=== PATIENT | female | born 1990 | race Caucasian/White ===

== ENCOUNTER 2016-05-21 10:03 | Emergency (ER) | payer MEDICAID, OTHER ==
[~2016-05-21] VITALS: Ht 160 cm; Wt 63.0 kg
[~2016-05-21 10:03] MED LIST: IBP800T PO; NITR-65 PO; NITR100C3 PO; ONDA8TAB9 PO; PRM25T PO; TRM50T PO; [UNRECOGNIZED DRUG - REMARK]; birth control; metformin PO
[2016-05-21] MEDS ORDERED: SULF1TAB35 PO (10:34)
--- NOTE | 2016-05-21 10:34 | ED Integumentary General ---
General Chief Complaint: Skin/Wound Problems Stated Complaint: POSS SPIDER BITE ON RIGHT BREAST Nursing Triage Note: REPORTS OF AREA ON R SIDE OF BREAST THAT HAS BEEN RED WITH DARK CENTER X 1WEEK Source: patient Exam Limitations: no limitations History of Present Illness Time seen by provider: 10:27 Initial Comments This 26-year-old woman presents with a lesion on the right breast about 1-2 cm in diameter with an eschared or scabbed center. She has breast some blood and pus from the lesion. She is concerned it as a spider bite. She has no history of skin abscesses or MRSA. Allergies and Home Medications Allergies Coded Allergies: No Known Drug Allergies (Unverified , 09/22/08) Home Medications Sulfamethoxazole/Trimethoprim 1 Each Tablet #10 1 EACH PO BID Prescribed by: CHARLEE ATKINS on 05/21/16 1034 Constitutional: no symptoms reported : No Skin: see HPI Hematologic/Lymphatic: No Symptoms Reported Past Vmxgqjn-Xkeukd-Hxpikr Hx Patient Social History Alcohol Use: Denies Use Recreational Drug Use: No Smoking Status: Current Everyday Smoker Recent Foreign Travel: No Contact w/Someone Who Travel: No Recent Infectious Disease Expo: No Recent Hopitalizations: No Physical Abuse Screen: No Sexual Abuse: No Immunizations Up To Date Tetanus Booster (TDap): Less than 5yrs Surgeries HX Surgeries: No Respiratory Hx Respiratory Disorders: No Cardiovascular Hx Cardiac Disorders: No (heart cath with no intervention) Neurological Hx Neurological Disorders: No Reproductive System Hx Reproductive Disorders: Yes (pcos, miscarriage x 1) Sexually Transmitted Disease: No HIV/AIDS: No 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 Genitourinary Hx Genitourinary Disorders: Yes Genitourinary Disorders: Kidney Infection Gastrointestinal Hx Gastrointestinal Disorders: No Musculoskeletal Hx Musculoskeletal Disorders: No Endocrine Hx Endocrine Disorders: Yes (early onset dm) Endocrine Disorders: Diabetes, Non-Insulin dep HEENT HX ENT Disorders: No Cancer Hx Cancer: No Psychosocial Hx Psychiatric Problems: No Integumentary HX Skin/Integumentary Disorder: No Blood Transfusions Hx Blood Disorders: No Family Medical History Family Medial History: Cardiovascular disease 19 MOTHER Hypertension 19 MOTHER Seizure disorder G8 SISTER Physical Exam Vital Signs Vital Sign - Last 12Hours 05/21/16 05/21/16 10:19 10:38 Temp 97.8 Pulse 108 Resp 18 B/P 131/61 Pulse Ox 97 O2 Delivery Room Air Capillary Refill : Less Than 3 Seconds General Appearance: WD/WN no apparent distress HEENT: normal ENT inspection Respiratory: no respiratory distress Extremities: normal inspection 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 No fluctuance or induration. No drainage.) Progress/Results/Core Measures Results/Orders Vital Signs/I&O Vital Sign - Last 12Hours 05/21/16 05/21/16 10:19 10:38 Temp 97.8 97.8 Pulse 108 108 Resp 18 B/P 131/61 Pulse Ox 97 O2 Delivery Room Air Room Air Blood Pressure Mean: 84 Progress Note : Progress Note This breast lesion likely represents an abscess which was ruptured and expressed by the patient and is now healing. 5 days of Bactrim was prescribed. Departure Impression Impression: Primary Impression: Breast abscess Disposition: 01 HOME, SELF-CARE Condition: Stable/Unchanged Departure-Patient Inst. Decision time for Depature: 10:33 Referrals: NO,LOCAL PHYSICIAN (PCP/Family) Primary Care Physician Patient Instructions: Skin Abscess Add. Discharge Instructions: Complete your antibiotics as prescribed. Return to care if symptoms worsen. All discharge instructions reviewed with patient and/or family. Voiced understanding. Scripts Sulfamethoxazole/Trimethoprim (Bactrim Ds Tablet)1 Each Tablet1 Each PO BID #10 TAB Prov:CHARLEE VASQUEZ MD 05/21/16 CHARELE VASQUEZ MD May 21, 2016 10:34
[2016-05-21 10:38] VITALS: BP 131/61
== END 2016-05-21 10:38 | disposition home or self-care (01) ==
LOC: EDUNIT# 10:03 → ER 10:11
DX: N61.1 Abscess of the breast and nipple (principal); E11.9 Type 2 diabetes mellitus without complications; F17.210 Nicotine dependence, cigarettes, uncomplicated
CPT/HCPCS: 99281

== ENCOUNTER 2016-07-20 11:47 | Emergency (ER) | payer MEDICAID ==
[~2016-07-20] VITALS: Ht 160 cm; Wt 59.4 kg
[~2016-07-20 11:47] MED LIST changes: +SULF1TAB35 PO
[2016-07-20] MEDS ORDERED: NS IV 1000 ML 1,000 ML IV ONE (12:06)
[2016-07-20] MEDS ORDERED: ONDANSETRON 4 MG/2 ML (SDV) Z0FRAN IVP ONE (12:15)
[2016-07-20 12:16] LABS: BILIRUBIN,URINE NEGATIVE (NEGATIVE); KETONES,URINE NEGATIVE (NEGATIVE); LEUKOCYTE ESTERASE ,URINE 3+ (NEGATIVE); NITRITE,URINE NEGATIVE (NEGATIVE); PH,URINE 7 (5-9); PROTEIN,URINE 2+ (NEGATIVE); UROBILINOGEN,URINE 4 MG/DL (NORMAL)
[2016-07-20 12:16] LABS: BASOPHILS % (AUTO) 0 % (0-10); EOSINOPHILS # (AUTO) 0.1 10^3/uL (0.0-0.3); EOSINOPHILS % (AUTO) 0 % (0-10); LYMPHOCYTES # (AUTO) 0.8 X 10^3 (1.0-4.0); LYMPHOCYTES % (AUTO) 7 % (12-44); MEAN CORPUSCULAR HEMOGLOBIN 31 PG (25-34); MEAN CORPUSCULAR HGB CONC 35 G/DL (32-36); MEAN CORPUSCULAR VOLUME 87 FL (80-99); MEAN PLATELET VOLUME 10.7 FL (7.4-10.4); MONOCYTES # (AUTO) 0.5 X 10^3 (0.0-1.0); MONOCYTES % (AUTO) 4 % (0-12); NEUTROPHILS # (AUTO) 11.4 X 10^3 (1.8-7.8); NEUTROPHILS % (AUTO) 89 % (42-75); PLATELET COUNT 193 10^3/uL (130-400); RED BLOOD COUNT 4.77 10^6/uL (4.35-5.85); RED CELL DISTRIBUTION WIDTH 12.9 % (10.0-14.5); WHITE BLOOD COUNT 12.7 10^3/uL (4.3-11.0)
[2016-07-20 12:26] LABS: SQUAMOUS EPITHELIAL CELL,UR >50 /HPF; WBC,URINE 50-100 /HPF
--- NOTE | 2016-07-20 12:30 | ED GU-Female ---
General Chief Complaint: General Problems/Pain Stated Complaint: DEHYRATION, 12.5 WEEKS Nursing Triage Note: Patient advises since 0400 this morning she has vomited approx. 5 times and has experienced diarrhea x 4. Pt. advises she has been nauseated throughout her but it has not been as significant as this. Nursing Sepsis Screen: No Definite Risk Source: patient Exam Limitations: no limitations History of Present Illness Time seen by provider: 12:30 Initial Comments 26 yo female patient presents to the ED with c/o n/v/d since 0400 this AM. Patient states she is approximately 12 wks . Has her 1st OB appointment in [place] on July 25. States she has had morning sickness since finding out she was . Son has similar symptoms. Timing/Duration: this morning, constant Severity/Quality: moderate Activities at Onset: sleep Prior Genitourinary Problems: none Sexual Olinda History: less than 2 months ago, single partner Modifying Factors: Worsens With Eating Allergies and Home Medications Allergies Coded Allergies: No Known Drug Allergies (Unverified , 09/22/08) Home Medications Cephalexin 500 Mg Capsule, 500 MG PO TID for 7 Days, #21 Ref 0 Prescribed by: ZANDER HILLMAN on 07/20/16 1301 Doxylamine/Pyridoxine HCl 1 Each Tablet.dr, 2 EACH PO HS PRN for NAUSEA/VOMITING , #30 Ref 0 Prescribed by: ZANDER HILLMAN on 07/20/16 1301 Sulfamethoxazole/Trimethoprim 1 Each Tablet, 1 EACH PO BID, #10 Prescribed by: CHARLEE ATKINS on 05/21/16 1034 Constitutional: chills, No diaphoresis, No dizziness, No fever, malaise EENTM: no symptoms reported Respiratory: no symptoms reported Cardiovascular: no symptoms reported Gastrointestinal: No abdominal pain, No constipation, diarrhea, No hematemesis , loss of appetite, No melena, nausea, vomiting Genitourinary: denies burning, denies discharge, denies dysuria, denies frequency, denies flank pain, denies hematuria, denies pain : Yes Musculoskeletal: no symptoms reported Skin: no symptoms reported Psychiatric/Neurological: No Symptoms Reported All Other Systemes Reviewed Negative Unless Noted: Yes (Negative excepted noted.) Past Dftmloc-Uxzwpa-Lmdefd Hx Patient Social History Alcohol Use: Denies Use Recreational Drug Use: No Smoking Status: Current Everyday Smoker Type Used: Cigarettes Recent Foreign Travel: No Contact w/Someone Who Travel: No Recent Infectious Disease Expo: No Recent Hopitalizations: No Immunizations Up To Date Tetanus Booster (TDap): Less than 5yrs Surgeries HX Surgeries: No Respiratory Hx Respiratory Disorders: No Cardiovascular Hx Cardiac Disorders: No (heart cath with no intervention) Neurological Hx Neurological Disorders: No Reproductive System : Yes (12.5 weeks) Hx : 8 Hx Para: 1 Hx Total # of Abortions (Spona: 6 Hx Reproductive Disorders: Yes (pcos, miscarriage x 1) Sexually Transmitted Disease: No HIV/AIDS: No 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 Genitourinary Hx Genitourinary Disorders: Yes Genitourinary Disorders: Kidney Infection Gastrointestinal Hx Gastrointestinal Disorders: No Musculoskeletal Hx Musculoskeletal Disorders: No Endocrine Hx Endocrine Disorders: Yes (early onset dm) Endocrine Disorders: Diabetes, Non-Insulin dep HEENT HX ENT Disorders: No Cancer Hx Cancer: No Psychosocial Hx Psychiatric Problems: No Integumentary HX Skin/Integumentary Disorder: No Blood Transfusions Hx Blood Disorders: No Reviewed Nursing Assessment Reviewed/Agree w Nursing PMH: Yes Family Medical History Significant Family History: No Pertinent Family Hx Family Medial History: Cardiovascular disease 19 MOTHER Hypertension 19 MOTHER Seizure disorder G8 SISTER Physical Exam Vital Signs Vital Sign - Last 12Hours 07/20/16 12:13 Pulse 95 Resp 16 B/P (MAP) 109/70 Pulse Ox 98 O2 Delivery Room Air Capillary Refill : Less Than 3 Seconds General Appearance: WD/WN, no apparent distress Cardiovascular: normal peripheral pulses, regular rate, rhythm, no murmur Respiratory: lungs clear, normal breath sounds, no respiratory distress Gastrointestinal: normal bowel sounds, non tender, soft, No distended Back: normal inspection, no CVA tenderness Extremities: no pedal edema, normal capillary refill Neurologic/Psychiatric: alert, normal mood/affect, oriented x 3 Skin: normal color, warm/dry Progress/Results/Core Measures Results/Orders Lab Results Laboratory Tests Test 07/20/16 12:06 07/20/16 12:08 Range/Units White Blood Count 12.7 H 4.3-11.0 10^3/uL Red Blood Count 4.77 4.35-5.85 10^6/uL Hemoglobin 14.7 11.5-16.0 G/DL Hematocrit 42 35-52 % Mean Corpuscular Volume 87 80-99 FL Mean Corpuscular Hemoglobin 31 25-34 PG Mean Corpuscular Hemoglobin Concent 35 32-36 G/DL Red Cell Distribution Width 12.9 10.0-14.5 % Platelet Count 193 130-400 10^3/uL Mean Platelet Volume 10.7 H 7.4-10.4 FL Neutrophils (%) (Auto) 89 H 42-75 % Lymphocytes (%) (Auto) 7 L 12-44 % Monocytes (%) (Auto) 4 0-12 % Eosinophils (%) (Auto) 0 0-10 % Basophils (%) (Auto) 0 0-10 % Neutrophils # (Auto) 11.4 H 1.8-7.8 X 10^3 Lymphocytes # (Auto) 0.8 L 1.0-4.0 X 10^3 Monocytes # (Auto) 0.5 0.0-1.0 X 10^3 Eosinophils # (Auto) 0.1 0.0-0.3 10^3/uL Basophils # (Auto) 0.0 0.0-0.1 10^3/uL Neutrophils % (Manual) 90 % Lymphocytes % (Manual) 10 % Blood Morphology Comment NORMAL Sodium Level 137 135-145 MMOL/L Potassium Level 3.7 3.6-5.0 MMOL/L Chloride Level 106 98-107 MMOL/L Carbon Dioxide Level 22 21-32 MMOL/L Anion Gap 9 5-14 MMOL/L Blood Urea Nitrogen 11 7-18 MG/DL Creatinine 0.62 0.60-1.30 MG/DL Estimat Glomerular Filtration Rate > 60 BUN/Creatinine Ratio 18 Glucose Level 87 70-105 MG/DL Calcium Level 9.0 8.5-10.1 MG/DL Total Bilirubin 1.0 0.1-1.0 MG/DL Aspartate Amino Transf (AST/SGOT) 18 5-34 U/L Alanine Aminotransferase (ALT/SGPT) 19 0-55 U/L Alkaline Phosphatase 74 40-136 U/L Total Protein 6.8 6.4-8.2 G/DL Albumin 3.9 3.2-4.5 G/DL Lipase 20 8-78 U/L Urine Color YELLOW Urine Clarity SLIGHTLY CLOUDY Urine pH 7 5-9 Urine Specific [place] 1.010 L 1.016-1.022 Urine Protein 2+ H NEGATIVE Urine Glucose (UA) NEGATIVE NEGATIVE Urine Ketones NEGATIVE NEGATIVE Urine Nitrite NEGATIVE NEGATIVE Urine Bilirubin NEGATIVE NEGATIVE Urine Urobilinogen 4 H NORMAL MG/DL Urine Leukocyte Esterase 3+ H NEGATIVE Urine RBC (Auto) 2+ H NEGATIVE Urine RBC NONE /HPF Urine WBC 50-100 H /HPF Urine Squamous Epithelial Cells >50 H /HPF Urine Crystals NONE /LPF Urine Bacteria FEW H /HPF Urine Casts NONE /LPF Urine Mucus NEGATIVE /LPF Urine Culture Indicated NO My Orders Orders - ZANDER HILLMAN Cbc With Automated Diff (07/20/16 12:06) Comprehensive Metabolic Panel (07/20/16 12:06) Lipase (07/20/16 12:06) Ua Culture If Indicated (07/20/16 12:06) Saline Lock/Iv-Start (07/20/16 12:06) Heart Tones (07/20/16 12:06) Ns Iv 1000 Ml (Sodium Chloride 0.9%) (07/20/16 12:06) Ondansetron Injection (Zofran Injectio (07/20/16 12:15) Manual Differential (07/20/16 12:06) Medications Given in ED Current Medications Medications Dose Ordered Sig/Shmuel Route Start Time Stop Time Status Last Admin Dose Admin Ondansetron HCl 4 mg ONCE ONCE IVP 07/20/16 12:15 07/20/16 12:16 DC 07/20/16 12:23 4 MG Sodium Chloride 1,000 ml @ 0 mls/hr Q0M ONCE IV 07/20/16 12:06 07/20/16 12:08 DC 07/20/16 12:23 0 MLS/HR Vital Signs/I&O Vital Sign - Last 12Hours 07/20/16 12:13 Pulse 95 Resp 16 B/P (MAP) 109/70 Pulse Ox 98 O2 Delivery Room Air Blood Pressure Mean: 83 Departure Communication Progress Notes Patient reports improvement in symptoms with medication and fluids. Laboratory findings discussed with the patient. Proceed with [facility] to home. Impression Impression: Primary Impression: Nausea, vomiting, and diarrhea Additional Impression: with 12 completed weeks gestation Disposition: 01 HOME, SELF-CARE Condition: Improved Departure-Patient Inst. Decision time for Depature: 12:56 Referrals: NO,LOCAL PHYSICIAN (PCP/Family) Primary Care Physician Patient Instructions: Urinary Tract Infection, Adult (DC), Viral Gastroenteritis, Adult (DC) Add. Discharge Instructions: All discharge instructions reviewed with patient and/or family. Voiced understanding. Medications as instructed. Tylenol dnco-vyf-wzurqhj as directed for pain or fever. Clear liquid diet until symptoms improve, then increase diet slowly to a bland, low-fat diet. Drink plenty of fluids. Follow- up with your molding line operator on July 25 as previously scheduled. Return to the emergency department for worsened vomiting, diarrhea, decreased urination, black stools, inability to urinate, vomiting blood, vaginal bleeding with greater than 2 pads per hour for greater than 2 hours, vaginal discharge, fever , or any other concerns. Scripts Cephalexin (Cephalexin) 500 Mg Capsule 500 MG PO TID for 7 Days, #21 CAP 0 Refills Prov: ZANDER HILLMAN 07/20/16 Doxylamine/Pyridoxine HCl (Veronica Baird 10-10 mg Tablet) 1 Each Tablet.dr 2 EACH PO HS Y for NAUSEA/VOMITING, #30 TAB 0 Refills Prov: ZANDER HILLMAN 07/20/16 Work/School Note: Work Release Form Date Seen in the Emergency Department: Jul 20, 2016 Return to Work: Jul 21, 2016 Restrictions: No Restrictions ZANDER HILLMAN Jul 20, 2016 12:30
[2016-07-20 12:34] LABS: ALANINE AMINOTRANSFERASE 19 U/L (0-55); ALBUMIN 3.9 G/DL (3.2-4.5); ANION GAP 9 MMOL/L (5-14); ASPARTATE AMINO TRANSFERASE 18 U/L (5-34); BLOOD UREA NITROGEN 11 MG/DL (7-18); BUN/CREATININE RATIO 18; CARBON DIOXIDE 22 MMOL/L (21-32); CHLORIDE 106 MMOL/L (98-107); CREATININE SERUM 0.62 MG/DL (0.60-1.30); GFR ESTIMATED > 60; GLUCOSE 87 MG/DL (70-105); LIPASE 20 U/L (8-78); POTASSIUM 3.7 MMOL/L (3.6-5.0); SODIUM 137 MMOL/L (135-145); TOTAL PROTEIN 6.8 G/DL (6.4-8.2)
[2016-07-20 12:35] LABS: LYMPHOCYTES % (MANUAL) 10 %; NEUTROPHILS % (MANUAL) 90 %
[2016-07-20] MEDS ORDERED: DOXY1TAB3 PO (13:01)
[2016-07-20] MEDS ORDERED: CEPH500C PO (13:01)
[2016-07-20 13:38] VITALS: BP 101/54
== END 2016-07-20 13:36 | disposition home or self-care (01) ==
LOC: EDUNIT# 11:47 → ER 11:49
DX: O99.611 Diseases of the digestive system complicating pregnancy, first trimester (principal); R11.2 Nausea with vomiting, unspecified; R19.7 Diarrhea, unspecified; O99.331 Smoking (tobacco) complicating pregnancy, first trimester; F17.210 Nicotine dependence, cigarettes, uncomplicated; Z3A.12 12 weeks gestation of pregnancy
CPT/HCPCS: 36415; 80053; 81000; 83690; 85007; 85027; 96374

== ENCOUNTER 2016-11-03 11:11 | Emergency (ER) | payer MEDICAID ==
[~2016-11-03] VITALS: Ht 160 cm; Wt 64.4 kg
[~2016-11-03 11:11] MED LIST changes: +CEPH500C PO; +DOXY1TAB3 PO
[2016-11-03] MEDS ORDERED: ACETAMINOPHEN 500 MG TAB (TYLENOL) PO STA (11:32)
--- NOTE | 2016-11-03 11:41 | ED Integumentary General ---
General Chief Complaint: Bite-Animal/Human/Insect Stated Complaint: 27 WKS PREG/TICK BITE R THIGH Nursing Triage Note: c/o tick bite to right inner thigh. She pulled the tick off yesterday Source: patient Exam Limitations: no limitations History of Present Illness Time seen by provider: 11:22 Initial Comments 26-year-old female patient presents to the emergency department complains of a tick bite to the right medial thigh. Patient states she pulled the tick off yesterday morning. Reports pain and redness today. States tick was attached less than 6 hours. Timing/Duration: yesterday, getting worse Location: extremities (rt thigh) Possible Cause: other (tick bite) Modifying Factors: worse with other (worse with palpation) Allergies and Home Medications Allergies Coded Allergies: No Known Drug Allergies (Unverified , 09/22/08) Home Medications Cefdinir 300 Mg Capsule, 300 MG PO BID, #14 Ref 0 Prescribed by: ZANDER HILLMAN on 11/03/16 1145 Cephalexin 500 Mg Capsule, 500 MG PO TID for 7 Days, #21 Ref 0 Prescribed by: ZANDER HILLMAN on 07/20/16 1301 Doxylamine/Pyridoxine HCl 1 Each Tablet.dr, 2 EACH PO HS PRN for NAUSEA/VOMITING , #30 Ref 0 Prescribed by: ZANDER HILLMAN on 07/20/16 1301 Mupirocin Calcium 15 Gm Cream..g., 15 GM TP UD, #1 Ref 0 apply to the rt thigh BID x7d Prescribed by: ZANDER HILLMAN on 11/03/16 1145 Sulfamethoxazole/Trimethoprim 1 Each Tablet, 1 EACH PO BID, #10 Prescribed by: CHARLEE ATKINS on 05/21/16 1034 Constitutional: No chills, No diaphoresis, No dizziness, No fever, No malaise, No weakness Respiratory: No cough, No short of breath Cardiovascular: no symptoms reported Gastrointestinal: No abdominal pain, No jaundice, No nausea, No vomiting Genitourinary: No decreased output, No discharge, No dysuria, No frequency, No hematuria, No pain : Yes Musculoskeletal: no symptoms reported Skin: see HPI Psychiatric/Neurological: No Symptoms Reported All Other Systems Reviewed Negative Unless Noted: Yes (Negative excepted noted.) Past Cqnxskr-Mhvqka-Iiuxjc Hx Patient Social History Alcohol Use: Denies Use Recreational Drug Use: No Type Used: Cigarettes Recent Foreign Travel: No Contact w/Someone Who Travel: No Recent Infectious Disease Expo: No Recent Hopitalizations: No Immunizations Up To Date Tetanus Booster (TDap): Less than 5yrs Surgeries HX Surgeries: No Respiratory Hx Respiratory Disorders: No Cardiovascular Hx Cardiac Disorders: No (heart cath with no intervention) Neurological Hx Neurological Disorders: No Reproductive System Hx Reproductive Disorders: Yes (pcos, miscarriage x 1) Sexually Transmitted Disease: No HIV/AIDS: No 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 Genitourinary Hx Genitourinary Disorders: Yes Genitourinary Disorders: Kidney Infection Gastrointestinal Hx Gastrointestinal Disorders: No Musculoskeletal Hx Musculoskeletal Disorders: No Endocrine Hx Endocrine Disorders: Yes (early onset dm) Endocrine Disorders: Diabetes, Non-Insulin dep HEENT HX ENT Disorders: No Cancer Hx Cancer: No Psychosocial Hx Psychiatric Problems: No Integumentary HX Skin/Integumentary Disorder: No Blood Transfusions Hx Blood Disorders: No Reviewed Nursing Assessment Reviewed/Agree w Nursing PMH: Yes Family Medical History Significant Family History: No Pertinent Family Hx Family Medial History: Cardiovascular disease 19 MOTHER Hypertension 19 MOTHER Seizure disorder G8 SISTER Physical Exam Vital Signs Vital Sign - Last 12Hours 11/03/16 11:21 Temp 97.6 Pulse 80 Resp 16 B/P (MAP) 121/69 Pulse Ox 98 O2 Delivery Room Air Capillary Refill : Less Than 3 Seconds General Appearance: WD/WN, no apparent distress Cardiovascular: normal peripheral pulses, regular rate, rhythm, no edema, no murmur Respiratory: lungs clear, normal breath sounds, no respiratory distress Gastrointestinal: non tender, soft Back: normal inspection Extremities: no pedal edema, normal capillary refill, other (1x1 cm area of light pink blush noted on the rt medial thigh with a central puncture site noted. soft tissue in no drainage.) Neurologic/Psychiatric: alert, normal mood/affect, oriented x 3 Skin: normal color, warm/dry, other (1x1 cm area of light pink blush noted on the rt medial thigh with a central puncture site noted. soft tissue in no drainage.) Skin Problem Location: lower extremities (rt medial thigh) Skin Problem Character: erythema, tenderness, other (1x1 cm area of light pink blush noted on the rt medial thigh with a central puncture site noted. soft tissue in no drainage.) Progress/Results/Core Measures Results/Orders My Orders Orders - ZANDER HILLMAN Heart Tones (11/03/16 11:32) Acetaminophen Tablet (Tylenol Tablet) (11/03/16 11:32) Vital Signs/I&O Vital Sign - Last 12Hours 11/03/16 11/03/16 11/03/16 11:21 11:52 12:17 Temp 97.6 97.6 97.6 Pulse 80 78 Resp 16 16 B/P (MAP) 121/69 Pulse Ox 98 98 O2 Delivery Room Air Blood Pressure Mean: 86 Departure Communication Progress Notes Patient seen and evaluated. FHT's 140 bpm. Plan for discharge to home with prescriptions for Omnicef and Bactroban. Tick attached less than 72 hours; therefore, tick borne illness is less likely. Patient follow-up with her x ray developer as an outpatient. Impression Impression: Primary Impression: Cellulitis Qualified Codes: L03.115 - Cellulitis of right lower limb Additional Impression: Tick bite of thigh Qualified Codes: S70.361A - Insect bite (nonvenomous), right thigh, initial encounter; W57.XXXA - Bitten or stung by nonvenomous insect and other nonvenomous arthropods, initial encounter Disposition: 01 HOME, SELF-CARE Condition: Improved Departure-Patient Inst. Decision time for Depature: 11:43 Referrals: NO,LOCAL PHYSICIAN (PCP) Primary Care Physician GARRET PENA MD (Family) Primary Care Physician Patient Instructions: Insect Bites and Stings (DC) Add. Discharge Instructions: All discharge instructions reviewed with patient and/or family. Voiced understanding. Medications as instructed. Tylenol Extra Strength over-the- counter as directed for pain. Ice packs or heating pads as needed. Shower with antibacterial soap. Follow-up with your x ray developer for recheck. Return to the emergency department for worsened pain, redness, fever, drainage, vaginal bleeding, vaginal discharge, abdominal pain, or any other concerns. Scripts Mupirocin Calcium (Bactroban) 15 Gm Cream..g. 15 GM TP UD, #1 TUBE 0 Refills apply to the rt thigh BID x7d Prov: ZANDER HILLMAN 11/03/16 Cefdinir (Cefdinir) 300 Mg Capsule 300 MG PO BID, #14 CAP 0 Refills Prov: ZANDER HILLMAN 11/03/16 Images Extremities-Lower 1 - Cellulitis, Other-See Progress Note ZANDER HILLMAN Nov 03, 2016 11:41
[2016-11-03] MEDS ORDERED: MUPI15CR TP (11:45)
[2016-11-03] MEDS ORDERED: CEFD300C3 PO (11:45)
[2016-11-03 12:17] VITALS: BP 120/62
--- OUTSIDE RECORDS SUMMARY | 2016-11-05 11:22 | XMS REPORT | Continuity of Care Document ---
Author Author [facility] Organization [facility] Address Unknown Phone Unavailable Allergies Active Description Code Type Severity Reaction Onset Reported/Identified Relationship to Patient Clinical Status Yes No Known Drug Allergies [id number] Drug Allergy Mild N/A 09/22/2008 Medications Problems Date Dx Coded Attending Type Code Diagnosis Diagnosed By 12/03/2013 ALTAF HUMPHREYS APRN Ot 787.01 NAUSEA WITH VOMITING 05/21/2016 JOSELIN BORRERO MD Ot 786.05 SHORTNESS OF BREATH 05/21/2016 JOSELIN BORRERO MD Ot 786.2 COUGH 05/21/2016 JOSELIN BORRERO MD Ot 786.50 CHEST PAIN NOS 05/21/2016 CHARLEE VASQUEZ MD Ot E11.9 TYPE 2 DIABETES MELLITUS WITHOUT COMPLIC 05/21/2016 CHARLEE VASQUEZ MD Ot F17.210 NICOTINE DEPENDENCE, CIGARETTES, UNCOMPL 05/21/2016 CHARLEE VASQUEZ MD Ot N61.1 ABSCESS OF THE BREAST AND NIPPLE 05/21/2016 JOSELIN BORRERO MD Ot 786.05 SHORTNESS OF BREATH 05/21/2016 JOSELIN BORRERO MD Ot 786.2 COUGH 05/21/2016 JOSELIN BORRERO MD Ot 786.50 CHEST PAIN NOS 05/22/2016 CHARLEE VASQUEZ MD Ot E11.9 TYPE 2 DIABETES MELLITUS WITHOUT COMPLIC 05/22/2016 CHARLEE VASQUEZ MD Ot F17.210 NICOTINE DEPENDENCE, CIGARETTES, UNCOMPL 05/22/2016 CHARLEE VASQUEZ MD Ot N61.1 ABSCESS OF THE BREAST AND NIPPLE 05/23/2016 CHARLEE VASQUEZ MD Ot E11.9 TYPE 2 DIABETES MELLITUS WITHOUT COMPLIC 05/23/2016 CHARLEE VASQUEZ MD Ot F17.210 NICOTINE DEPENDENCE, CIGARETTES, UNCOMPL 05/23/2016 CHARLEE VASQUEZ MD Ot N61.1 ABSCESS OF THE BREAST AND NIPPLE 07/20/2016 ADAIR HENRIQUEZ, JOSELIN Mason Ot 786.05 SHORTNESS OF BREATH 07/20/2016 ADAIR HENRIQUEZ, JOSELIN Mason Ot 786.2 COUGH 07/20/2016 JOSELIN BORRERO MD Ot 786.50 CHEST PAIN NOS 07/20/2016 ZANDER MARTINS Ot F17.210 NICOTINE DEPENDENCE, CIGARETTES, UNCOMPL 07/20/2016 ZANDER MARTINS L Ot O99.331 SMOKING (TOBACCO) COMPLICATING 07/20/2016 ZANDER MARTINS Ot O99.611 DISEASES OF THE DGSTV SYS COMP 07/20/2016 ZANDER MARTINS Ot R11.2 NAUSEA WITH VOMITING, UNSPECIFIED 07/20/2016 ZANDER MARTINS Ot R19.7 DIARRHEA, UNSPECIFIED 07/20/2016 ZANDER MARTINS Ot Z3A.12 12 WEEKS GESTATION OF 07/22/2016 ZANDER MARTINS Ot F17.210 NICOTINE DEPENDENCE, CIGARETTES, UNCOMPL 07/22/2016 ZANDER MARTINS Ot O99.331 SMOKING (TOBACCO) COMPLICATING 07/22/2016 ZANDER MARTINS Ot O99.611 DISEASES OF THE DGSTV SYS COMP 07/22/2016 ZANDER MARTINS Ot R11.2 NAUSEA WITH VOMITING, UNSPECIFIED 07/22/2016 ZANDER MARTINS Ot R19.7 DIARRHEA, UNSPECIFIED 07/22/2016 ZANDER MARTINS Ot Z3A.12 12 WEEKS GESTATION OF 07/22/2016 ZANDER MARTINS Ot F17.210 NICOTINE DEPENDENCE, CIGARETTES, UNCOMPL 07/22/2016 ZANDER MARTINS Ot O99.331 SMOKING (TOBACCO) COMPLICATING 07/22/2016 ZANDER MARTINS Ot O99.611 DISEASES OF THE DGSTV SYS COMP 07/22/2016 ZANDER MARTINS Ot R11.2 NAUSEA WITH VOMITING, UNSPECIFIED 07/22/2016 ZANDER MARTINS Ot R19.7 DIARRHEA, UNSPECIFIED 07/22/2016 ZANDER MARTINS Ot Z3A.12 12 WEEKS GESTATION OF Procedures Results Test Result Range Complete blood count (CBC) with automated white blood cell (WBC) differential - 07/20/16 12:06 Blood leukocytes automated count (number/volume) 12.7 10*3/ uL 4.3-11.0 Blood erythrocytes automated count (number/volume) 4.77 10*6 /uL 4.35-5.85 Venous blood hemoglobin measurement (mass/volume) 14.7 g/dL 11.5-16.0 Blood hematocrit (volume fraction) 42 % 35-52 Automated erythrocyte mean corpuscular volume 87 [foz_us] 80-99 Automated erythrocyte mean corpuscular hemoglobin (mass per erythrocyte) 31 pg 25-34 Automated erythrocyte mean corpuscular hemoglobin concentration measurement ( mass/volume) 35 g/dL 32-36 Automated erythrocyte distribution width ratio 12.9 % 10.0-14.5 Automated blood platelet count (count/volume) 193 10*3/uL 130-400 Automated blood platelet mean volume measurement 10.7 [foz_ us] 7.4-10.4 Automated blood neutrophils/100 leukocytes 89 % 42-75 Automated blood lymphocytes/100 leukocytes 7 % 12-44 Blood monocytes/100 leukocytes 4 % 0-12 Automated blood eosinophils/100 leukocytes 0 % 0-10 Automated blood basophils/100 leukocytes 0 % 0-10 Blood neutrophils automated count (number/volume) 11.4 10*3 1.8-7.8 Blood lymphocytes automated count (number/volume) 0.8 10*3 1.0-4.0 Blood monocytes automated count (number/volume) 0.5 10*3 0.0-1.0 Automated eosinophil count 0.1 10*3/uL 0.0-0.3 Automated blood basophil count (count/volume) 0.0 10*3/uL 0.0-0.1 Comprehensive metabolic panel - 07/20/16 12:06 Serum or plasma sodium measurement (moles/volume) 137 mmol/ L 135-145 Serum or plasma potassium measurement (moles/volume) 3.7 mmol/L 3.6-5.0 Serum or plasma chloride measurement (moles/volume) 106 mmol /L 98-107 Carbon dioxide 22 mmol/L 21-32 Serum or plasma anion gap determination (moles/volume) 9 mmol/L 5-14 Serum or plasma urea nitrogen measurement (mass/volume) 11 mg/dL 7-18 Serum or plasma creatinine measurement (mass/volume) 0.62 mg /dL 0.60-1.30 Serum or plasma urea nitrogen/creatinine mass ratio 18 NRG Serum or plasma creatinine measurement with calculation of estimated glomerular filtration rate > NRG Serum or plasma glucose measurement (mass/volume) 87 mg/dL 70-105 Serum or plasma calcium measurement (mass/volume) 9.0 mg/dL 8.5-10.1 Serum or plasma total bilirubin measurement (mass/volume) 1.0 mg/dL 0.1-1.0 Serum or plasma alkaline phosphatase measurement (enzymatic activity/volume) 74 U/L 40-136 Serum or plasma aspartate aminotransferase measurement (enzymatic activity/ volume) 18 U/L 5-34 Serum or plasma alanine aminotransferase measurement (enzymatic activity/volume ) 19 U/L 0-55 Serum or plasma protein measurement (mass/volume) 6.8 g/dL 6.4-8.2 Serum or plasma albumin measurement (mass/volume) 3.9 g/dL 3.2-4.5 Lipase - 07/20/16 12:06 Lipase 20 U/L 8-78 Blood manual differential performed detection - 07/20/16 12:06 Manual blood segmented neutrophils/100 leukocytes 90 % NRG Manual blood lymphocytes/100 leukocytes 10 % NRG Blood erythrocyte morphology finding identification NORMAL NRG Complete urinalysis with reflex to culture - 07/20/16 12:08 Urine color determination YELLOW NRG Urine clarity determination SLIGHTLY CLOUDY NRG Urine pH measurement by test strip 7 5- 9 Specific gravity of urine by test strip 1.010 1.016-1.022 Urine protein assay by test strip, semi-quantitative 2+ NEGATIVE Urine glucose detection by automated test strip NEGATIVE NEGATIVE Erythrocytes detection in urine sediment by light microscopy 2+ NEGATIVE Urine ketones detection by automated test strip NEGATIVE NEGATIVE Urine nitrite detection by test strip NEGATIVE NEGATIVE Urine total bilirubin detection by test strip NEGATIVE NEGATIVE Urine urobilinogen measurement by automated test strip (mass/volume) 4 mg/dL NORMAL Urine leukocyte esterase detection by dipstick 3+ NEGATIVE Automated urine sediment erythrocyte count by microscopy (number/high power field) NONE NRG Automated urine sediment leukocyte count by microscopy (number/high power field ) [HPF] NRG Bacteria detection in urine sediment by light microscopy FEW NRG Squamous epithelial cells detection in urine sediment by light microscopy >50 NRG Crystals detection in urine sediment by light microscopy NONE NRG Casts detection in urine sediment by light microscopy NONE NRG Mucus detection in urine sediment by light microscopy NEGATIVE NRG Complete urinalysis with reflex to culture NO NRG Encounters ACCT No. Visit Date/Time Discharge Status Pt. Type Provider Facility Loc./Unit Complaint [id number] 07/20/2016 11:49:00 2016 13:36:00 DIS Emergency ZANDER MARTINS [facility] ER DEHYRATION, 12.5 WEEKS [id number] 05/21/2016 10:11:00 2016 10:38:00 DIS Emergency CHARLEE VASQUEZ MD [facility] ER POSS SPIDER BITE ON RIGHT BREAST [id number] 12/03/2013 10:15:00 2013 13:16:00 DIS Emergency ALTAF HUMPHREYS APRN [facility] ER VOMITING/DIARRHEA [id number] 07/23/2013 10:38:00 2013 23:59:59 CLS Outpatient JOSELIN BORRERO MD [facility] CARD CP [id number] 07/22/2013 10:48:00 2013 23:59:59 CLS Outpatient JOSELIN BORRERO MD [facility] RAD 3 WK COUGH,SOB
== END 2016-11-03 12:17 | disposition home or self-care (01) ==
LOC: EDUNIT# 11:11 → ER 11:13
DX: O9A.22 Injury, poisoning and certain other consequences of external causes complicating childbirth (principal); S70.361A Insect bite (nonvenomous), right thigh, initial encounter; O99.719 Diseases of the skin and subcutaneous tissue complicating pregnancy, unspecified trimester; L03.115 Cellulitis of right lower limb; O24.919 Unspecified diabetes mellitus in pregnancy, unspecified trimester; Z3A.00 Weeks of gestation of pregnancy not specified; Z87.891 Personal history of nicotine dependence; W57.XXXA Bitten or stung by nonvenomous insect and other nonvenomous arthropods, initial encounter
CPT/HCPCS: 99283

== ENCOUNTER 2016-12-10 20:45 | Outpatient (CLI) | payer MEDICAID ==
[~2016-12-10] VITALS: Ht 160 cm; Wt 67.1 kg
[~2016-12-10 20:45] MED LIST changes: +CEFD300C3 PO; +MUPI15CR TP
[2016-12-10 21:07] VITALS: BP 114/60
[2016-12-10] MEDS ORDERED: PREN-142 PO (21:41)
--- NOTE | 2016-12-11 08:13 | Physician Query-Final Dx ---
ARELY MODI 12/11/16 0813: Clinic Account Progress/Dx Physician Query: Please give diagnosis Date of Service Dec 10, 2016 at 20:45 FERCHO COLLINS DO 12/12/16 0648: Clinic Account Progress/Dx DIAGNOSIS: Diagnosis decreased movement, third trimester, no local physician threatened labor ARELY MODI Dec 11, 2016 08:13 FERCHO COLLINS DO Dec 12, 2016 06:48
== END 2016-12-10 22:15 | disposition home or self-care (01) ==
LOC: LDRP 20:45 → WSo 20:45
PROVIDERS: ATTEND Obstetrics & Gynecology
DX: O36.8130 Decreased fetal movements, third trimester, not applicable or unspecified (principal); O47.03 False labor before 37 completed weeks of gestation, third trimester; Z3A.33 33 weeks gestation of pregnancy
CPT/HCPCS: 99213

== ENCOUNTER → 2018-03-17 | Outpatient (CLI) | payer MEDICAID ==
[~2018-03-17] MED LIST changes: +PREN-142 PO
--- NOTE | 2018-03-17 16:21 | Diagnostic Imaging Report ---
INDICATION: survey. TECHNIQUE: Multiple real-time grayscale images were obtained over the gravid uterus. COMPARISON: There are no prior studies available for comparison. FINDINGS: There is a single live fetus in transverse presentation. heart motion was noted, and a rate of 139 BPM was recorded. However, the four-chamber heart view is less than optimal. A short-term (4-6 week) followup exam would be recommended for further evaluation. There is no abnormality identified otherwise. The growth parameters are fairly uniform. The placenta is posterior, and there is no previa. The amniotic fluid volume is within normal limits. The cervix measures 3.7 cm in length. IMPRESSION: 1. There is a single live fetus of approximately 20 weeks 3 days gestation, +/-1.5 weeks. The EDC is August 01, 2018. 2. There are no abnormalities identified. However, the four-chamber heart view is less than optimal. Recommendations as above. 3. The growth parameters are fairly uniform. Biometrical measurements are as follows: Biparietal 4.72 cm, age 20 weeks 2 days. Head circumference 17.31 cm, age 20 weeks 0 days. Abdominal circumference 15.47 cm, age 20 weeks 5 days. Femur length 3.31 cm, age 20 weeks 3 days. Sonographic estimated age: 20 weeks 3 days. Sonographic estimated date of delivery: 08/01/2018. Estimated Weight: 354 gm (+/- 52 gm). LMP percentile: 63%. heart rate: 139 beats per minute. number: 1 of 1. Dictated by: Dictated on workstation # [id number]
== END ==
LOC: RAD 14:00
PROVIDERS: ATTEND Obstetrics & Gynecology
DX: Z36.89 Encounter for other specified antenatal screening (principal); Z3A.20 20 weeks gestation of pregnancy
CPT/HCPCS: 76805

== ENCOUNTER 2018-04-15 20:22 | Outpatient (CLI) | payer MEDICAID ==
[~2018-04-15] VITALS: Ht 160 cm; Wt 61.2 kg
[2018-04-15 20:40] VITALS: BP 114/60
[2018-04-15 21:21] LABS: BILIRUBIN,URINE NEGATIVE (NEGATIVE); CLARITY,URINE CLEAR; COLOR,URINE YELLOW; GLUCOSE, URINE (UA) NEGATIVE (NEGATIVE); KETONES,URINE NEGATIVE (NEGATIVE); LEUKOCYTE ESTERASE ,URINE NEGATIVE (NEGATIVE); NITRITE,URINE NEGATIVE (NEGATIVE); PH,URINE 7 (5-9); PROTEIN,URINE NEGATIVE (NEGATIVE); UROBILINOGEN,URINE 1 MG/DL (NORMAL)
[2018-04-15 21:28] LABS: RBC,URINE 0-2 /HPF; SQUAMOUS EPITHELIAL CELL,UR RARE /HPF
== END 2018-04-15 22:20 | disposition home or self-care (01) ==
LOC: LDRP 20:22 → WSo 20:22
PROVIDERS: ATTEND Obstetrics & Gynecology
DX: O99.89 Other specified diseases and conditions complicating pregnancy, childbirth and the puerperium (principal); R10.2 Pelvic and perineal pain; Z3A.24 24 weeks gestation of pregnancy
CPT/HCPCS: 81000; 99214

== ENCOUNTER 2018-04-17 11:30 | Outpatient (CLI) | payer MEDICAID ==
[~2018-04-17] VITALS: Ht 160 cm; Wt 61.3 kg
[2018-04-17 12:00] VITALS: BP 113/56
[2018-04-17 12:51] VITALS: BP 119/58
[2018-04-17 13:00] VITALS: BP 106/59
[2018-04-17 13:07] LABS: BILIRUBIN,URINE NEGATIVE (NEGATIVE); CLARITY,URINE CLEAR; COLOR,URINE YELLOW; GLUCOSE, URINE (UA) NEGATIVE (NEGATIVE); KETONES,URINE NEGATIVE (NEGATIVE); LEUKOCYTE ESTERASE ,URINE 1+ (NEGATIVE); NITRITE,URINE NEGATIVE (NEGATIVE); PH,URINE 7 (5-9); PROTEIN,URINE NEGATIVE (NEGATIVE); UROBILINOGEN,URINE 1 MG/DL (NORMAL)
[2018-04-17 13:15] VITALS: BP 107/57
[2018-04-17 13:16] LABS: BACTERIA,URINE TRACE /HPF
[2018-04-17 13:57] VITALS: BP 106/55
[2018-04-17 14:16] VITALS: BP 107/56
[2018-04-17] MEDS ORDERED: METR500T PO (14:46)
[2018-04-17] MEDS ORDERED: FLU QUADRIvalent (5+ YOA) 2018-2019 (AFLURIA) 0.5 ML IM ONE (16:15)
== END 2018-04-17 15:00 | disposition home or self-care (01) ==
LOC: LDRP 11:30 → WSo 11:30 → LDRP 14:06 → WS 14:06 → WSo 15:00
PROVIDERS: ATTEND Obstetrics & Gynecology
DX: O99.89 Other specified diseases and conditions complicating pregnancy, childbirth and the puerperium (principal); R10.2 Pelvic and perineal pain; Z3A.24 24 weeks gestation of pregnancy
CPT/HCPCS: 81000; 87088; 87210; 99214

== ENCOUNTER 2018-06-05 21:38 | Outpatient (CLI) | payer SELFPAY ==
--- NOTE | 2018-06-04 22:40 | NUR ---
AMPICILLIN 20GM IV STARTED PER ORDERS.
[~2018-06-05] VITALS: Ht 160 cm; Wt 65.9 kg
[~2018-06-05 21:38] MED LIST changes: +METR500T PO
--- NOTE | 2018-06-05 21:45 | NUR ---
ASHLEY DAVALOS presented to unit via from ED, with c/o SROM. ASHLEY DAVALOS weighed, gowned, voided, and to bed. EFHM and TOCO applied, VS taken. ASHLEY DAVALOS oriented to bed controls, call light, TV, heat, and A/C controls.
[2018-06-05 21:55] VITALS: BP 118/64
[2018-06-05] MEDS ORDERED: D5 LR IV SOLUTION 1,000 ML IV SCH ×2 (21:55)
[2018-06-05] MEDS ORDERED: AMPICILLIN FOR IV USE 2,000 MG in NS (IVPB) 50 ML IV SCH (21:55)
[2018-06-05] MEDS ORDERED: D5 LR IV SOLUTION 1,000 ML IV ONE (21:56)
[2018-06-05] MEDS ORDERED: CATHETER FLUSH 10 ML SYR IV SCH (22:00)
[2018-06-05] MEDS ORDERED: BETAMETHASONE ACE/NA PHOS 6 MG/ML (CELESTONE SOLUSPAN) IM ONE (22:00)
[2018-06-05] MEDS ORDERED: BETAMETHASONE ACE/NA PHOS 6 MG/ML (CELESTONE SOLUSPAN) ONE ×2 (22:00→22:10)
--- NOTE | 2018-06-05 22:05 | History & Physical-OB/GYN ---
History of Present Illness History of Present Illness Reason for visit/HPI this is a 28-year-old gravida4 para 3002 at 31-4/7 weeks who called women's services to report that felt a large gush of fluid at home while she was seated on the couch and has had trickling since that time. has been complicated by evaluation at 24 weeks of gestation. When she was seen in labor and delivery with complaint of pelvic pressure. She was not noted to be mickie but her cervix was 3 cm dilated and thick. She was sent home by the on-call physician but no instructions were given. She returned on 04/17 with complaints of increase in mucousy discharge. She had few clue cells that were noted on wet mount so she was started on metronidazole. After that time she had a follow-up ultrasound that had previously been ordered for heart not seen on her 20 week survey. This was May 01, 2018. I received a report that the cervix was 4+ centimeters in length but appeared closed externally, but there is "funneling" with an area below the funneling of 2 cm. I saw her in the office on 05/06/18. She at that time was not complaining of discharge but did state she was having pressure. Cervical exam was 4 cm and - 3. Nonstress test was done and there were no contractions. She was 26 weeks at this time. She received a round of betamethasone. Does not have a history of labor. But because the cervix was 4 cm dilated at 26 weeks we recommended repeat evaluation and repeat betamethasone. I started her on progesterone and Procardia due to the advanced cervical dilation. She has done well since that time. She has a history of previous . She is scheduled for at 39 weeks. She is a 4 para 3003. With a vaginal delivery in 2008 with a . This was after an accident. She then had a live at 38 weeks of a vaginal delivery in 2015. And then a (due to breech in labor) at 38 weeks in 2017. She [facility] Date of Admission 06/05/18 Date Seen by a Provider: Jun 05, 2018 Time Seen by a Provider: 21:55 I consulted on this patient on 06/05/18 21:57 Attending Physician Daksha Collins DO Admitting Physician Daksha Collins DO Consult see above HIV - Rub I RPR NR HBSAg - Hep C - A+/Antibody - 1 hour 115 Hgb 13.5 GC/Cl - GBS unknown Allergies and Home Medications Allergies Coded Allergies: No Known Drug Allergies (Unverified , 09/22/08) Home Medications Nifedipine 30 Mg Tab.er.24, 30 MG PO DAILY Prescribed by: DAKSHA COLLINS on 06/05/182206 Vit No.124/Iron/FA 1 Each Tablet, 1 EACH PO DAILY, (Reported) Progesterone 200 Mg Cap, 200 MG PO DAILY Prescribed by: DAKSHA COLLINS on 06/05/182206 Patient Home Medication List Home Medication List Reviewed: Yes Past Hczmcou-Cvnxkk-Gfmdwe Hx Patient Social History Marrital Status: domestic partnership Number of Children: 2 Number of living children: 2 Employed/Student: unemployed Alcohol Use: Past History Recreational Drug Use: No Smoking Status: Current Someday Smoker Cigaretts per day: 4 Former Smoker, Quit: Jun 05, 2018 Type Used: Cigarettes Recent Foreign Travel: No Contact w/other who traveled: No Recent Hopitalizations: No Immunizations Up To Date Tetanus Booster (TDap): Less than 5yrs (05/13/18) Date of Influenza Vaccine: May 13, 2018 Surgeries No Respiratory No Cardiovascular No (heart cath with no intervention) Neurological No Reproductive System : Yes Expected Date of Delivery: Aug 03, 2018 Last Menstrual Period: Oct 03, 2017 Hx : 4 Hx Para: 3 (LC 2) Hx Total # of Abortions (Spona: 0 Hx Reproductive Disorders: Yes (pcos, miscarriage x 1) Sexually Transmitted Disease: No HIV/AIDS: No 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 Genitourinary Kidney Infection Gastrointestinal No Musculoskeletal No Endocrine History of Endocrine Disorders: Yes (early onset dm) Endocrine Disorders: Diabetes, Non-Insulin dep Cancer No Psychosocial History of Psychiatric Problem: No Integumentary History of Skin or Integumenta: No Blood Transfusions History of Blood Disorders: No Family Medical History Significant Family History: No Pertinent Family Hx Family Hx: Cardiovascular disease 19 MOTHER Hypertension 19 MOTHER Seizure disorder G8 SISTER Review of Systems Constitutional: no symptoms reported EENTM: no symptoms reported Respiratory: no symptoms reported Gastrointestinal: no symptoms reported Genitourinary: see HPI : Yes Expected Date of Delivery: Aug 03, 2018 LMP: Oct 03, 2017 Musculoskeletal: back pain Skin: no symptoms reported Psychiatric/Neurological: No Symptoms Reported no contractions, leakage of clear fluid, no bleeding, good movement Physical Exam Physical Exam Vital Signs Capillary Refill : Labs Laboratory Tests 06/05/18 22:10: White Blood Count 9.0, Red Blood Count 4.18L, Hemoglobin 12.9, Hematocrit 37, Mean Corpuscular Volume 90, Mean Corpuscular Hemoglobin 31, Mean Corpuscular Hemoglobin Concent 35, Red Cell Distribution Width 12.6, Platelet Count 169, Mean Platelet Volume 10.9H, Neutrophils (%) (Auto) 65, Lymphocytes (%) (Auto) 25 , Monocytes (%) (Auto) 9, Eosinophils (%) (Auto) 1, Basophils (%) (Auto) 0, Neutrophils # (Auto) 5.9, Lymphocytes # (Auto) 2.3, Monocytes # (Auto) 0.8, Eosinophils # (Auto) 0.1, Basophils # (Auto) 0.0 06/05/18 22:20: Urine Color YELLOW, Urine Clarity SLIGHTLY CLOUDY, Urine pH 7, Urine Specific [place] 1.010L, Urine Protein NEGATIVE, Urine Glucose (UA) NEGATIVE, Urine Ketones NEGATIVE, Urine Nitrite NEGATIVE, Urine Bilirubin NEGATIVE, Urine Urobilinogen NORMAL, Urine Leukocyte Esterase NEGATIVE, Urine RBC (Auto) NEGATIVE, Urine RBC NONE, Urine WBC NONE, Urine Squamous Epithelial Cells RARE, Urine Crystals NONE, Urine Bacteria NEGATIVE, Urine Casts NONE, Urine Mucus NEGATIVE, Urine Culture Indicated NO General Appearance: No Apparent Distress Respiratory: Chest Non Tender, Lungs Clear, Normal Breath Sounds Cardiovascular: Regular Rate, Rhythm, No Edema Abdominal: normal bowel sounds, non tender Cervix: Other (4 cm dilated, 75 effaced, -2, cephalic, grossly ruptured with pooling, + amnisure) Comments FHT [address]TV, + accels, category I No contractions Assessment/Plan Assessment and Plan 1. (LC2) at 31 4/7 weeks by first trimester US with SROM 2. Advanced cervical dilation, not in labor 3. Previous CS (planned possible TOLAC) Has received betamethasone at 29 weeks. Will admit and transfer. Requests transfer to [facility] as she has delivered there in the past. Will start Amp, betamethasone and initiate transfer. She is not in labor. Dr. Guerrero has accepted transfer. Admission Diagnosis 1. (LC2) at 31 4/7 weeks by first trimester US with SROM 2. Advanced cervical dilation, not in labor 3. Previous CS (planned possible TOLAC) Admission Status: Other (Transfer to [facility]) Diagnosis/Problems Diagnosis/Problems (1) Previous delivery affecting , antepartum (2) premature rupture of membranes (3) premature rupture of membranes in third trimester DAKSHA COLLINS DO Jun 05, 2018 22:05
[2018-06-05] MEDS ORDERED: PROG200C14 PO (22:07)
[2018-06-05] MEDS ORDERED: NIFE30TA2 PO (22:07)
[2018-06-05 22:25] LABS: BASOPHILS % (AUTO) 0 % (0-10); EOSINOPHILS # (AUTO) 0.1 10^3/uL (0.0-0.3); EOSINOPHILS % (AUTO) 1 % (0-10); HEMATOCRIT 37 % (35-52); HEMOGLOBIN 12.9 G/DL (11.5-16.0); LYMPHOCYTES # (AUTO) 2.3 X 10^3 (1.0-4.0); LYMPHOCYTES % (AUTO) 25 % (12-44); MEAN CORPUSCULAR HEMOGLOBIN 31 PG (25-34); MEAN CORPUSCULAR HGB CONC 35 G/DL (32-36); MEAN CORPUSCULAR VOLUME 90 FL (80-99); MEAN PLATELET VOLUME 10.9 FL (7.4-10.4); MONOCYTES # (AUTO) 0.8 X 10^3 (0.0-1.0); MONOCYTES % (AUTO) 9 % (0-12); NEUTROPHILS # (AUTO) 5.9 X 10^3 (1.8-7.8); NEUTROPHILS % (AUTO) 65 % (42-75); PLATELET COUNT 169 10^3/uL (130-400); RED CELL DISTRIBUTION WIDTH 12.6 % (10.0-14.5)
[2018-06-05 22:35] LABS: BILIRUBIN,URINE NEGATIVE (NEGATIVE); CLARITY,URINE SLIGHTLY CLOUDY; COLOR,URINE YELLOW; GLUCOSE, URINE (UA) NEGATIVE (NEGATIVE); KETONES,URINE NEGATIVE (NEGATIVE); LEUKOCYTE ESTERASE ,URINE NEGATIVE (NEGATIVE); NITRITE,URINE NEGATIVE (NEGATIVE); PH,URINE 7 (5-9); PROTEIN,URINE NEGATIVE (NEGATIVE); UROBILINOGEN,URINE NORMAL (NORMAL)
[2018-06-05 22:42] LABS: BACTERIA,URINE NEGATIVE /HPF; SQUAMOUS EPITHELIAL CELL,UR RARE /HPF
--- NOTE | 2018-06-05 22:50 | NUR ---
CALL RETURNED FROM DR RUIZ WITH ACCEPTANCE TO TRANSFER TO [facility].
--- NOTE | 2018-06-05 23:04 | NUR ---
[facility]PATCH CALLED FOR AMBULANCE TRANSFER.
--- NOTE | 2018-06-05 23:45 | NUR ---
REPORT TO ROSA M ESPINOZA AT [facility]. EMS HERE FOR TRANSPORT. IV TO [facility] PER EMS REQUEST.
--- NOTE | 2018-06-05 23:48 | NUR ---
PT D/C OFF UNIT ON EMS [facility]. REPORT TO EMS.
[2018-06-06] MEDS ORDERED: BETAMETHASONE ACE/NA PHOS 6 MG/ML (CELESTONE SOLUSPAN) IM SCH (09:00)
== END 2018-06-05 23:45 | disposition short-term general hospital (02) ==
LOC: WSo 21:38 → LDRP 21:39 → WSo 23:45
PROVIDERS: ATTEND Obstetrics & Gynecology
DX: O42.913 Preterm premature rupture of membranes, unspecified as to length of time between rupture and onset of labor, third trimester (principal); O34.211 Maternal care for low transverse scar from previous cesarean delivery; Z3A.31 31 weeks gestation of pregnancy
CPT/HCPCS: 36415; 81000; 85025; 86850; 86900; 86901; 96361; 96374; 99213

== ENCOUNTER 2018-06-07 21:57 | Outpatient (CLI) | payer OTHER ==
[~2018-06-07] VITALS: Ht 160 cm; Wt 65.1 kg
[~2018-06-07 21:57] MED LIST changes: +NIFE30TA2 PO; +PROG200C14 PO
--- NOTE | 2018-06-07 22:07 | NUR ---
Pt ambulated to OB department from ER with family. Pt wt and gowned , placed on EFM. Pt complaining of UC tonight. Pt states that she ruptured on Friday night, presented to this facility, was transferred to [facility] in [place]. Pt left [facility] after antibiotics started. JUNIOR performed and Dr Suárez contacted. POC discussed with patient and she wishes to return to [facility].
[2018-06-07] MEDS ORDERED: D5 LR IV SOLUTION 1,000 ML IV ONE (22:19)
--- NOTE | 2018-06-07 22:21 | NUR ---
notified of pt's arrival and exam. Dr fontana to the hospital for transfer
[2018-06-07 22:25] VITALS: BP 121/58
[2018-06-07] MEDS ORDERED: D5 LR IV SOLUTION 1,000 ML IV SCH (22:45)
--- NOTE | 2018-06-07 23:12 | History & Physical-OB ---
OB - Chief Complaint & HPI Date/Time Date of Admission: Date of Admission: Date seen by a Provider: Jun 07, 2018 Time Seen by a Provider: 11:10 Chief Complaint/History OB-Reason for Admission/Chief: Rupture of Membranes Hx : 3 Hx Para: 2 Expected Date of Delivery: Aug 03, 2018 Gestational Age in Weeks: 31 Gestational Age in Days: 6 Other reason for admission: Mehnaz is a at 31 6/7 weeks with PPROM on Friday evening. She was 4 cm dilated and has been since approximately 26 weeks gestation (04/15/18). She was transferred to [facility] in [place] to a higher level of care and left [place] because she was upset that nothing was being done. She states she "has her childcare under control now" and would like to be transferred back to [facility]. I have contacted [facility] and they gave her Zithromax 1 gram orally and ampicillin IV to prolong latent phase and for GBS prophylaxis. GBS is unknown. Betamethasone was not continued as it had been given at 26 weeks. She was allowed to ambulated but not to leave the floor. She has not had bleeding, she does feel contractions and has felt good movement. the contractions have not been regular. She has had some continued leakage of fluid. Admission Nurse Assessment Rev: Yes Allergies and Home Medications Allergies Coded Allergies: No Known Drug Allergies (Unverified , 09/22/08) Home Medications Nifedipine 30 Mg Tab.er.24, 30 MG PO DAILY Prescribed by: FERCHO COLLINS on 06/05/182206 Vit No.124/Iron/FA 1 Each Tablet, 1 EACH PO DAILY, (Reported) Progesterone 200 Mg Cap, 200 MG PO DAILY Prescribed by: FERCHO COLLINS on 06/05/182206 Patient Home Medication List Home Medication List Reviewed: Yes OB - History Hx of Present Care: Yes Ultrasounds: Normal mid trimester US Obstetrical Complications: None Medical Complications: None Information Induced Hypertension: No Maternal Gestational Diabetes: No Hemorrhage: No Obstetrical History Hx : 3 (Per her initial intake records she is but she also discussed another delivery that she does not list. Her history is confusing but she) Hx Para: 2 Hx Multiple Gestation: No Hx Ectopic : No Hx Stillbirth: No Hx Complication: Yes (unclear, does admit to 2 previous deliveries, but possibly a or . History is confounding. ) Hx Induced Hypertens: No Hx Maternal Gestational Diabet: No Hx Hemorrhage: No Delivery History Hx Dystocia: No Hx Forceps Assisted Delivery: No Hx Vacuum Extraction Assisted: No Hx Placenta Abnormality: No Hx Distress: No Hx Large For Gestational Age I: No Hx Small for Gestational Age I: No Hx Section: Yes (CS at term, breech in labor) Hx Vaginal Delivery Post C-Sec: No Hx Blood Disorders: No Patient Past Medical History [place] Social History/Family History HIV/AIDS: No Recent Infectious Disease Expo: No Sexually Transmitted Disease: No Alcohol Use: Past History Recreational Drug Use: No Smoking Cessation: Current some day smoker Immunizations Hepatitis A: Yes Hepatitis B: Yes Tetanus Booster (TDap): Less than 5yrs Date of Influenza Vaccine: May 13, 2018 Rubella: immune RPR/VDRL: Negative GBS Status: Unknown HBsAG: Negative OB - Admission Exam Physical Exam Vitals: Vital Signs 06/07/18 22:25 Temp 98.5 Pulse 96 Resp 18 B/P (MAP) 121/58 (79) Heart: Rhythm Normal Lungs: Clear Abdomen: Gravid Extremities: Normal Reflexes: Normal Cervical Dilatation: 4cm Effacement: 75% Station: -2 Membranes: Ruptured Amniotic Fluid: Clear Heart Rate: 140's Accelerations: Accelerations Present Decelerations: No Decelerations Short Term Variability: Present Intermediate Variability: Average (6-25) Contractions on Admission: None OB - Assessment/Plan/Diagnosis Assessment Assessment: IUP - , rupture of membranes Admission Dx premature rupture of membranes 31 6/7 weeks Admission Status: Observation Plan Plan: Other (Expectant management with ampicillin and zithromax to prolong latent phase. [facility] has declined transfer. Will admit and monitor and attempt transfer to [facility] in the am. She understands that if baby would precipitously deliver then baby would be transferred and mother would be here. In addition, Avinash may decline transfer as well. Will obtain social work consult in the am for assistance. ) FERCHO COLLINS DO Jun 07, 2018 23:12
[2018-06-07] MEDS ORDERED: AMPICILLIN FOR IV USE 2,000 MG in NS (IVPB) 50 ML IV SCH (23:34)
[2018-06-07 23:42] LABS: BASOPHILS % (AUTO) 0 % (0-10); EOSINOPHILS % (AUTO) 0 % (0-10); HEMATOCRIT 36 % (35-52); HEMOGLOBIN 12.1 G/DL (11.5-16.0); LYMPHOCYTES # (AUTO) 2.5 X 10^3 (1.0-4.0); LYMPHOCYTES % (AUTO) 26 % (12-44); MEAN CORPUSCULAR HEMOGLOBIN 31 PG (25-34); MEAN CORPUSCULAR HGB CONC 34 G/DL (32-36); MEAN CORPUSCULAR VOLUME 91 FL (80-99); MEAN PLATELET VOLUME 11.3 FL (7.4-10.4); MONOCYTES # (AUTO) 0.9 X 10^3 (0.0-1.0); MONOCYTES % (AUTO) 9 % (0-12); NEUTROPHILS # (AUTO) 6.1 X 10^3 (1.8-7.8); NEUTROPHILS % (AUTO) 64 % (42-75); PLATELET COUNT 184 10^3/uL (130-400); RED CELL DISTRIBUTION WIDTH 12.7 % (10.0-14.5); WHITE BLOOD COUNT 9.6 10^3/uL (4.3-11.0)
[2018-06-07] MEDS ORDERED: ACETAMINOPHEN 500 MG TAB (TYLENOL) PO PRN (23:45)
[2018-06-07] MEDS ORDERED: ZOLPIDEM 5 MG (AMBIEN) TAB PO PRN (23:45)
[2018-06-07] MEDS ORDERED: BETAMETHASONE ACE/NA PHOS 6 MG/ML (CELESTONE SOLUSPAN) IM ONE (23:45)
[2018-06-08] VITALS (7 sets, daily range): BP systolic 90–116; BP diastolic 45–73
[2018-06-08] MEDS ORDERED: hydrOXYzine (VISTARIL) 25 MG CAP PO ONE
[2018-06-08] MEDS ORDERED: NICOTINE 14 MG (NICODERM) PATCH TD ONE (00:15)
[2018-06-08] MEDS ORDERED: AMPICILLIN FOR IV USE 1,000 MG/VIAL ONE (00:38)
[2018-06-08] MEDS ORDERED: AMPICILLIN FOR IV USE 2,000 MG VIAL ONE (00:38)
[2018-06-08] MEDS: AZITHROMYCIN 250 MG TAB (ZITHROMAX) PO SCH (01:08)
[2018-06-08] MEDS: AMPICILLIN FOR IV USE 1,000 MG in NS (IVPB) 50 ML IV SCH ×5 (04:36→20:30)
--- NOTE | 2018-06-08 10:20 | NUR ---
patient taken off monitor per patient request to ambulate.
--- NOTE | 2018-06-08 10:22 | NUR ---
CM/SS spoke with the patient and her grandmother in regards to the SS consult. Patient is concerned with care of her older children if she transfers and how the family will do if she is in [place] or else where hospitalized. Her grandmother was reassuring that she and the patient's mother would take care of the other children in the home and that she needed to care for her and baby at this time. Discussed resources in [place] ie) [facility]. Will continue to follow along in EMR.
--- NOTE | 2018-06-08 12:40 | NUR ---
fresh ice water at bedside. EFM reapplied. patient up moving for 2 hrs with family and kids around room and hallways. patient reports pressure and pain in hips. Tylenol given as ordered for pain.
--- NOTE | 2018-06-08 13:10 | NUR ---
dr norotn at bedside reviewing labs, and poc with patient and s/o.
--- NOTE | 2018-06-08 15:10 | NUR ---
patient requested IV covered to take shower. shower setup, IV covered. denies further need.
--- NOTE | 2018-06-08 15:20 | NUR ---
notified by admin patient is on first floor by front entrance. this RN and director went after patient. patient found by entrance smoking a cigarette, cigarette put out by patient per RN's request. followed RN back inside, RN, patient and director escorted patient back to room 319 and reviewed no smoking policy and dr orders with patient. verbalized understanding. [id number] dr norton notified of incident.
--- NOTE | 2018-06-08 15:28 | NUR ---
CM/SS patient asked for an application for Medicaid as she was informed that hers is not active. Provided her with application and once she has it filled out and supporting documents then will fax for her.
[2018-06-08] MEDS: NICOTINE 14 MG (NICODERM) PATCH TD SCH (16:40)
--- NOTE | 2018-06-08 17:40 | NUR ---
patient up walking with friends. no s/s of ditress smiling and talking with friends and staff.
--- NOTE | 2018-06-08 21:00 | NUR ---
Discussed plan of care with pt. pt states does not want to be transferred to another facility of higher level of care. pt states she does not want to put a burden on her family to travel to [place]. discussed that infant will likely be transferred to a higher level of care if delivered. Pt states she is fine with delivering here and understands will likely be transferred. Pt states she will leave AMA if is told to stay on bedrest in hospital or if she needs to be transferred. Discussed premature risk with pt. pt is aware of risk of delivering at this facility.
[2018-06-09] MEDS: AMPICILLIN FOR IV USE 1,000 MG in NS (IVPB) 50 ML IV SCH ×5 (00:20→16:30)
[2018-06-09] MEDS: AZITHROMYCIN 250 MG TAB (ZITHROMAX) PO SCH (00:58)
[2018-06-09 04:10] VITALS: BP 98/53
--- NOTE | 2018-06-09 07:00 | NUR ---
Report from Petros MEDEROS.
--- NOTE | 2018-06-09 07:15 | NUR ---
Pt sleeping in bed, no c/o noted, will continue to monitor and allow pt to sleep until am assessment.
--- NOTE | 2018-06-09 07:47 | Progress Note-Standard ---
Standard Progress Note Progress Notes/Assess & Plan Date Seen by a Provider: Jun 08, 2018 Time Seen by a Provider: 11:30 FERCHO COLLINS DO Jun 09, 2018 07:47
[2018-06-09 08:15] VITALS: BP 96/51
--- NOTE | 2018-06-09 08:30 | NUR ---
Pt ambulated to BR per request, RN at bedside, pt reports leaking small amount of fluid prior to voiding, cl fluid, pt did not notify rn of leaking until after she already voided and returned to bed, rn educated pt about importance of notifying rn if leaking occurs again, pt verbalizes understanding. Pt denies leaking fluid throughout the night and has worn a pad and panties since admission per pt. Initial assessment completed at bedside, pt denies contractions or pain, see interventions for detailed assessments, plan of care explained and updated with pt, pt made aware by this rn that no order is present about activity or monitoring, rn will have pt remain in bed on efm and toco until Dr Suárez is contacted by rn for more orders. Pt verbalizes understanding, sitting up in bed ordering breakfast. Will continue to monitor.
--- NOTE | 2018-06-09 10:39 | NUR ---
CM/SS met with patient this morning to follow up on Medicaid kevin. Patient was stating this day that she was wanting to leave AMA. Lon came in to the patient's room to discuss this with her.
--- NOTE | 2018-06-09 11:48 | NUR ---
DR. COLLINS TO PT'S BEDSIDE TO DISCUSS POC.
--- NOTE | 2018-06-09 11:54 | NUR ---
DR COLLINS OUT TO NURSES DESK AND VOICES THAT PT CONTINUES TO DESIRE TO LEAVE AMA.
--- NOTE | 2018-06-09 11:55 | NUR ---
IV DC'D BY STUDENT RN.
[2018-06-09] MEDS ORDERED: AMOX250C PO (12:01)
[2018-06-09] MEDS ORDERED: ERYT250C61 PO (12:01)
--- NOTE | 2018-06-09 12:04 | Discharge Inst-Women's Service ---
Discharge Inst-Women's Serv Depart Medication/Instructions New, Converted or Re-Newed RX: Transmitted to Pharmacy Final Diagnosis premature rupture of membranes 31 4/7 weeks Consults/Follow Up Additional Follow Up: Yes (daily office visits with NST) Activity Activity: Bedrest Driving Instructions: No Driving/Refer to Dr. HARKINS SMOKING: NO SMOKING Nothing Inside Vagina: No Douching, No [place], No Tampons Diet Discharge Diet: No Restrictions Symptoms to Report to : Fever Over 101 Degrees F foul vaginal discharge decreased movement bleeding vaginally For Any Problems or Questions: Contact Your Physician, Go to Emergency Room FERCHO COLLINS DO Jun 09, 2018 12:04
--- NOTE | 2018-06-09 12:05 | Progress Note-Standard ---
Standard Progress Note Progress Notes/Assess & Plan Date Seen by a Provider: Jun 09, 2018 Time Seen by a Provider: 11:55 FERCHO COLLINS DO Jun 09, 2018 12:05
--- NOTE | 2018-06-09 12:07 | NUR ---
PT AMBULATED OFF UNIT WITH S/O AND FRIEND AT SIDE, AFTER AMA FORM SIGNED, PT AWARE OF RISKS OF LEAVING AGAINST MEDICAL ADVICE BUT CONTINUES TO LEAVE ANYWAY. DR COLLINS TOLD PT PRIOR TO LEAVING TO RETURN TO HER OFFICE TOMORROW FOR FOLLOW UP APPOINTMENT AND RETURN TO [facility] FOR ANY CONCERNS.
[2018-06-09] MEDS: NICOTINE 14 MG (NICODERM) PATCH TD SCH (16:40)
== END 2018-06-09 12:07 | disposition left against medical advice (07) ==
LOC: LDRP 21:57 → WSo 21:57
PROVIDERS: ATTEND Obstetrics & Gynecology
DX: O42.913 Preterm premature rupture of membranes, unspecified as to length of time between rupture and onset of labor, third trimester (principal); Z3A.31 31 weeks gestation of pregnancy
CPT/HCPCS: 36415; 76805; 76819; 85025; 96361; 96372; 96374; 96376

== ENCOUNTER 2018-06-13 11:55 | Inpatient (IN) | payer MEDICAID ==
[~2018-06-13] VITALS: Ht 160 cm; Wt 63.5 kg
--- NOTE | 2018-06-13 12:00 | NUR ---
Arrived to unit via wheelchair from ED. Pt c/o "contractions since early this am. and continued leaking fluid. reports having srom last week and being admitted here transferred to [facility] in [place] and left ama from that hospital as well as this hospital at some point. Wt obtained. to room 318. Gowned and urine sample obtained. to bed and monitors on. pt breathing through contractions. plan of care reviewed with pt and s.o.
[2018-06-13 12:05] VITALS: BP 138/83
[2018-06-13] MEDS ORDERED: ceFAZolin INJECTION 1,000 MG ONE (12:38)
[2018-06-13] MEDS ORDERED: WATER (STERILE) FOR INJECTION 10 ML ONE (12:39)
--- OUTSIDE RECORDS SUMMARY | 2018-06-13 12:40 | XMS REPORT | Continuity of Care Document ---
Author Author [facility] Organization [facility] Address Unknown Phone Unavailable Allergies Active Description Code Type Severity Reaction Onset Reported/Identified Relationship to Patient Clinical Status Yes No Known Drug Allergies [id number] Drug Allergy Mild N/A 09/22/2008 Medications There is no data. Problems Date Dx Coded Attending Type Code [...] HENRIQUEZ, JOSELIN Mason Ot 786.2 COUGH 07/20/2016 ADAIR HENRIQUEZ, JOSELIN Mason Ot 786.50 CHEST PAIN NOS 07/20/2016 ZANDER [...] MARTINS Ot Z3A.12 12 WEEKS GESTATION OF 11/03/2016 ZANDER MARTINS Ot L03.115 CELLULITIS OF RIGHT LOWER LIMB 11/03/2016 RAFY FINNEGAN ZANDER L Ot O24.919 UNSP DIABETES MELLITUS IN , UNS 11/03/2016 ZANDER MARTINS Ot O99.719 DISEASES OF THE SKIN, SUBCU COMP PREGNAN 11/03/2016 ZANDER MARTINS Ot O9A.22 INJ/POISN/OTH CONSEQ OF EXTERNAL CAUSES 11/03/2016 ZANDER MARTINS Ot S70.361A INSECT BITE (NONVENOMOUS), RIGHT THIGH, 11/03/2016 ZANDER MARTINS Ot W57.XXXA BIT/STUNG BY NONVENOM INSECT OTH NONVE 11/03/2016 ZANDER MARTINS Ot Z3A.00 WEEKS OF GESTATION OF NOT SPEC 11/03/2016 ZANDER MARTINS Ot Z87.891 PERSONAL HISTORY OF NICOTINE DEPENDENCE 11/05/2016 ZANDER MARTINS Ot L03.115 CELLULITIS OF RIGHT LOWER LIMB 11/05/2016 ZANDER MARTINS Ot O24.919 UNSP DIABETES MELLITUS IN , UNS 11/05/2016 ZANDER MARTINS Ot O99.719 DISEASES OF THE SKIN, SUBCU COMP PREGNAN 11/05/2016 ZANDER MARTINS Ot O9A.22 INJ/POISN/OTH CONSEQ OF EXTERNAL CAUSES 11/05/2016 ZANDER MARTINS Ot S70.361A INSECT BITE (NONVENOMOUS), RIGHT THIGH, 11/05/2016 ZANDER MARTINS Ot W57.XXXA BIT/STUNG BY NONVENOM INSECT OTH NONVE 11/05/2016 ZANDER MARTINS Ot Z3A.00 WEEKS OF GESTATION OF NOT SPEC 11/05/2016 ZANDER MARTINS Ot Z87.891 PERSONAL HISTORY OF NICOTINE DEPENDENCE 12/10/2016 FERCHO COLLINS DO Ot O36.8130 DECREASED MOVEMENTS, THIRD TRIMEST 12/10/2016 FERCHO COLLINS DO Ot O47.03 FALSE LABOR BEFORE 37 COMPLETED WEEKS OF 12/10/2016 FERCHO COLLINS DO Ot Z3A.33 33 WEEKS GESTATION OF 02/18/2017 ADAIR HENRIQUEZ, JOSELIN Mason Ot 786.05 SHORTNESS OF BREATH 02/18/2017 ADAIR HENRIQUEZ, JOSELIN Mason Ot 786.2 COUGH 02/18/2017 ADAIR HENRIQUEZ, JOSELIN Mason Ot 786.50 CHEST PAIN NOS 03/13/2018 ADAIR HENRIQUEZ, JOSELIN Mason Ot 786.05 SHORTNESS OF BREATH 03/13/2018 ADAIR HENRIQUEZ, JOSELIN Mason Ot 786.2 COUGH 03/13/2018 ADAIR HENRIQUEZ, JOSELIN Mason Ot 786.50 CHEST PAIN NOS 03/17/2018 ADAIR HENRIQUEZ, JOSELIN Mason Ot 786.05 SHORTNESS OF BREATH 03/17/2018 JOSELIN BORRERO MD Ot 786.2 COUGH 03/17/2018 ADAIR HENRIQUEZ, JOSELIN Mason Ot 786.50 CHEST PAIN NOS 03/18/2018 COLLINS DO, FERCHO C Ot Z36.89 ENCOUNTER FOR OTHER SPECIFIED 03/18/2018 COLLINS DO, FERCHO C Ot Z3A.20 20 WEEKS GESTATION OF 04/07/2018 COLLINS DO, FERCHO C Ot Z36.89 ENCOUNTER FOR OTHER SPECIFIED 04/07/2018 COLLINS DO, FERCHO C Ot Z3A.20 20 WEEKS GESTATION OF 04/15/2018 JOSELIN BORRERO MD Ot 786.05 SHORTNESS OF BREATH 04/15/2018 JOSELIN BORRERO MD Ot 786.2 COUGH 04/15/2018 ADAIR HENRIQUEZ, JOSELIN Mason Ot 786.50 CHEST PAIN NOS 04/15/2018 COLLINS DO, FERCHO C Ot Z36.89 ENCOUNTER FOR OTHER SPECIFIED 04/15/2018 COLLINS DO, FERCHO C Ot Z3A.20 20 WEEKS GESTATION OF 04/15/2018 MARCELA SHANKAR MD Ot O99.89 OTH DISEASES AND CONDITIONS COMPL PREG/C 04/15/2018 MARCELA SHANKAR MD Ot R10.2 PELVIC AND PERINEAL PAIN 04/15/2018 MARCELA SHANKAR MD Ot Z3A.24 24 WEEKS GESTATION OF 04/17/2018 MARCELA SHANKAR MD Ot O99.89 OTH DISEASES AND CONDITIONS COMPL PREG/C 04/17/2018 MARCELA SHANKAR MD Ot R10.2 PELVIC AND PERINEAL PAIN 04/17/2018 MARCELA SHANKAR MD Ot Z3A.24 24 WEEKS GESTATION OF 04/17/2018 MARCELA SHANKAR MD Ot O99.89 OTH DISEASES AND CONDITIONS COMPL PREG/C 04/17/2018 RAAD HENRIQUEZ, MARCELA Ferguson Ot R10.2 PELVIC AND PERINEAL PAIN 04/17/2018 RAAD HENRIQUEZ, MARCELA Ferguson Ot Z3A.24 24 WEEKS GESTATION OF 05/04/2018 DENNIS ESCOBEDO FERCHO Mora Ot Z36.89 ENCOUNTER FOR OTHER SPECIFIED 05/04/2018 DENNIS DO FERCHO C Ot Z3A.20 20 WEEKS GESTATION OF 05/07/2018 COLLINS DO FERCHO C Ot Z36.89 ENCOUNTER FOR OTHER SPECIFIED 05/07/2018 COLLINS DO FERCHO C Ot Z3A.20 20 WEEKS GESTATION OF 05/14/2018 COLLINS DO FERCHO C Ot Z36.89 ENCOUNTER FOR OTHER SPECIFIED 05/14/2018 DENNIS DO FERCHO C Ot Z3A.20 20 WEEKS GESTATION OF 06/05/2018 DENNIS ESCOBEDO FERCHO C Ot O34.211 MATERN CARE FOR LOW TRANSVERSE SCAR FROM 06/05/2018 DENNIS ESCOBEDOFERCHO Ot O42.913 PRETRM NARESH ROM, UNSP TIME BETW RUPT AND 06/05/2018 COLLINS DOFERCHO Ot Z3A.31 31 WEEKS GESTATION OF 06/08/2018 COLLINS DOFERCHO Ot O34.211 MATERN CARE FOR LOW TRANSVERSE SCAR FROM 06/08/2018 DENNIS DOFERCHO Ot O42.913 PRETRM NARESH ROM, UNSP TIME BETW RUPT AND 06/08/2018 COLLINS DOFERCHO C Ot Z3A.31 31 WEEKS GESTATION OF 06/09/2018 DENNIS ESCOBEDOFERCHO Ot O42.913 PRETRM NARESH ROM, UNSP TIME BETW RUPT AND 06/09/2018 COLLINS DOFERCHO Ot Z3A.31 31 WEEKS GESTATION OF 06/10/2018 COLLINS DOFERCHO Ot O42.913 PRETRM NARESH ROM, UNSP TIME BETW RUPT AND 06/10/2018 COLLINS DOFERCHO Ot Z3A.31 31 WEEKS GESTATION OF 06/12/2018 COLLINSFERCHO Mata DO Ot O34.211 MATERN CARE FOR LOW TRANSVERSE SCAR FROM 06/12/2018 COLLINS DOFERCHO Ot O42.913 PRETRM NARESH ROM, UNSP TIME BETW RUPT AND 06/12/2018 FERCHO COLLINS DO Ot Z3A.31 31 WEEKS GESTATION OF 06/12/2018 FERCHO COLLINS DO Ot O42.913 PRETRM NARESH ROM, UNSP TIME BETW RUPT AND 06/12/2018 COLLINS DOFERCHO Ot Z3A.31 31 WEEKS GESTATION OF 06/13/2018 FERCHO COLLINS DO Ot O42.913 PRETRM NARESH ROM, UNSP TIME BETW RUPT AND 06/13/2018 COLLINS DOFERCHO Ot Z3A.31 31 WEEKS GESTATION OF Procedures There is no data. Results Test Result Range Complete blood count (CBC) with automated white blood cell (WBC) differential - 07/20/16 12:06 Blood leukocytes automated count (number/volume) 12.7 10*3/uL 4.3-11.0 Blood erythrocytes automated count (number/volume) 4.77 10*6/uL 4.35-5.85 Venous blood hemoglobin measurement (mass/volume) 14.7 [...] Automated blood platelet mean volume measurement 10.7 [foz_us] 7.4-10.4 Automated blood neutrophils/100 leukocytes 89 % [...] Serum or plasma sodium measurement (moles/volume) 137 mmol/L 135-145 Serum or plasma potassium measurement (moles/volume) 3.7 mmol/L 3.6-5.0 Serum or plasma chloride measurement (moles/volume) 106 mmol/L 98-107 Carbon dioxide 22 mmol/L 21-32 Serum or plasma anion gap determination (moles/volume) 9 mmol/L 5-14 Serum or plasma urea nitrogen measurement (mass/volume) 11 mg/dL 7-18 Serum or plasma creatinine measurement (mass/volume) 0.62 mg/dL 0.60-1.30 Serum or plasma urea nitrogen/creatinine mass [...] Urine pH measurement by test strip 7 5-9 Specific gravity of urine by test strip 1.010 1.016- 1.022 Urine protein assay by test strip, semi-quantitative [...] urinalysis with reflex to culture NO NRG Complete urinalysis with reflex to culture - 04/15/18 21:10 Urine color determination YELLOW NRG Urine clarity determination CLEAR NRG Urine pH measurement by test strip 7 5-9 Specific gravity of urine by test strip 1.005 1.016- 1.022 Urine protein assay by test strip, semi-quantitative NEGATIVE NEGATIVE Urine glucose detection by automated test strip NEGATIVE NEGATIVE Erythrocytes detection in urine sediment by light microscopy 1+ NEGATIVE Urine ketones detection by automated test strip NEGATIVE NEGATIVE Urine nitrite detection by test strip NEGATIVE NEGATIVE Urine total bilirubin detection by test strip NEGATIVE NEGATIVE Urine urobilinogen measurement by automated test strip (mass/volume) 1 mg/dL NORMAL Urine leukocyte esterase detection by dipstick NEGATIVE NEGATIVE Automated urine sediment erythrocyte count by microscopy (number/high power field) [HPF] NRG Automated urine sediment leukocyte count by microscopy (number/high power field ) NONE NRG Bacteria detection in urine sediment by light microscopy NONE NRG Squamous epithelial cells detection in urine sediment by light microscopy RARE NRG Crystals detection in urine sediment by light microscopy NONE NRG Casts detection in urine sediment by light microscopy NONE NRG Mucus detection in urine sediment by light microscopy NEGATIVE NRG Complete urinalysis with reflex to culture NO NRG Complete urinalysis with reflex to culture - 04/17/18 11:55 Urine color determination YELLOW NRG Urine clarity determination CLEAR NRG Urine pH measurement by test strip 7 5-9 Specific gravity of urine by test strip 1.010 1.016- 1.022 Urine protein assay by test strip, semi-quantitative NEGATIVE NEGATIVE Urine glucose detection by automated test strip NEGATIVE NEGATIVE Erythrocytes detection in urine sediment by light microscopy NEGATIVE NEGATIVE Urine ketones detection by automated test strip NEGATIVE NEGATIVE Urine nitrite detection by test strip NEGATIVE NEGATIVE Urine total bilirubin detection by test strip NEGATIVE NEGATIVE Urine urobilinogen measurement by automated test strip (mass/volume) 1 mg/dL NORMAL Urine leukocyte esterase detection by dipstick 1+ NEGATIVE Automated urine sediment erythrocyte count by microscopy (number/high power field) NONE NRG Automated urine sediment leukocyte count by microscopy (number/high power field ) NONE NRG Bacteria detection in urine sediment by light microscopy TRACE NRG Squamous epithelial cells detection in urine sediment by light microscopy 5-10 NRG Crystals detection in urine sediment by light microscopy NONE NRG Casts detection in urine sediment by light microscopy NONE NRG Mucus detection in urine sediment by light microscopy NEGATIVE NRG Complete urinalysis with reflex to culture NO NRG Bacterial urine culture - 04/17/18 11:55 Bacterial urine culture SEE REPORT NRG COLONY COUNT . NRG Microscopic examination by wet preparation - 04/17/18 13:15 WET PREP RESULTS NO YEAST OBSERVED, NO TRICHOMONAS OBSERVED NRG Complete blood count (CBC) with automated white blood cell (WBC) differential - 06/05/18 22:10 Blood leukocytes automated count (number/volume) 9.0 10*3/uL 4.3-11.0 Blood erythrocytes automated count (number/volume) 4.18 10*6/uL 4.35-5.85 Venous blood hemoglobin measurement (mass/volume) 12.9 g/dL 11.5-16.0 Blood hematocrit (volume fraction) 37 % 35-52 Automated erythrocyte mean corpuscular volume 90 [foz_us] 80-99 Automated erythrocyte mean corpuscular hemoglobin (mass per erythrocyte) 31 pg 25-34 Automated erythrocyte mean corpuscular hemoglobin concentration measurement ( mass/volume) 35 g/dL 32-36 Automated erythrocyte distribution width ratio 12.6 % 10.0-14.5 Automated blood platelet count (count/volume) 169 10*3/uL 130-400 Automated blood platelet mean volume measurement 10.9 [foz_us] 7.4-10.4 Automated blood neutrophils/100 leukocytes 65 % 42-75 Automated blood lymphocytes/100 leukocytes 25 % 12-44 Blood monocytes/100 leukocytes 9 % 0-12 Automated blood eosinophils/100 leukocytes 1 % 0-10 Automated blood basophils/100 leukocytes 0 % 0-10 Blood neutrophils automated count (number/volume) 5.9 10*3 1.8-7.8 Blood lymphocytes automated count (number/volume) 2.3 10*3 1.0-4.0 Blood monocytes automated count (number/volume) 0.8 10*3 0.0-1.0 Automated eosinophil count 0.1 10*3/uL 0.0-0.3 Automated blood basophil count (count/volume) 0.0 10*3/uL 0.0-0.1 Complete urinalysis with reflex to culture - 06/05/18 22:20 Urine color determination YELLOW NRG Urine clarity determination SLIGHTLY CLOUDY NRG Urine pH measurement by test strip 7 5-9 Specific gravity of urine by test strip 1.010 1.016- 1.022 Urine protein assay by test strip, semi-quantitative NEGATIVE NEGATIVE Urine glucose detection by automated test strip NEGATIVE NEGATIVE Erythrocytes detection in urine sediment by light microscopy NEGATIVE NEGATIVE Urine ketones detection by automated test strip NEGATIVE NEGATIVE Urine nitrite detection by test strip NEGATIVE NEGATIVE Urine total bilirubin detection by test strip NEGATIVE NEGATIVE Urine urobilinogen measurement by automated test strip (mass/volume) NORMAL NORMAL Urine leukocyte esterase detection by dipstick NEGATIVE NEGATIVE Automated urine sediment erythrocyte count by microscopy (number/high power field) NONE NRG Automated urine sediment leukocyte count by microscopy (number/high power field ) NONE NRG Bacteria detection in urine sediment by light microscopy NEGATIVE NRG Squamous epithelial cells detection in urine sediment by light microscopy RARE NRG Crystals detection in urine sediment by light microscopy NONE NRG Casts detection in urine sediment by light microscopy NONE NRG Mucus detection in urine sediment by light microscopy NEGATIVE NRG Complete urinalysis with reflex to culture NO NRG Blood type T Indirect antibody screen panel - 06/05/18 22:20 ABO+Rh group AP NRG Transfusion band number [id number] NRG Blood group antibody screen NEGATIVE NRG Complete blood count (CBC) with automated white blood cell (WBC) differential - 06/07/18 23:00 Blood leukocytes automated count (number/volume) 9.6 10*3/uL 4.3-11.0 Blood erythrocytes automated count (number/volume) 3.94 10*6/uL 4.35-5.85 Venous blood hemoglobin measurement (mass/volume) 12.1 g/dL 11.5-16.0 Blood hematocrit (volume fraction) 36 % 35-52 Automated erythrocyte mean corpuscular volume 91 [foz_us] 80-99 Automated erythrocyte mean corpuscular hemoglobin (mass per erythrocyte) 31 pg 25-34 Automated erythrocyte mean corpuscular hemoglobin concentration measurement ( mass/volume) 34 g/dL 32-36 Automated erythrocyte distribution width ratio 12.7 % 10.0-14.5 Automated blood platelet count (count/volume) 184 10*3/uL 130-400 Automated blood platelet mean volume measurement 11.3 [foz_us] 7.4-10.4 Automated blood neutrophils/100 leukocytes 64 % 42-75 Automated blood lymphocytes/100 leukocytes 26 % 12-44 Blood monocytes/100 leukocytes 9 % 0-12 Automated blood eosinophils/100 leukocytes 0 % 0-10 Automated blood basophils/100 leukocytes 0 % 0-10 Blood neutrophils automated count (number/volume) 6.1 10*3 1.8-7.8 Blood lymphocytes automated count (number/volume) 2.5 10*3 1.0-4.0 Blood monocytes automated count (number/volume) 0.9 10*3 0.0-1.0 Automated eosinophil count 0.0 10*3/uL 0.0-0.3 Automated blood basophil count (count/volume) 0.0 10*3/uL 0.0-0.1 Encounters ACCT No. Visit Date/Time Discharge Status Pt. Type Provider Facility Loc./Unit Complaint [id number] 06/07/2018 21:57:00 06/09/2018 12:07:00 DIS Outpatient FERCHO COLLINS DO [facility] CONTRACTIONS [id number] 06/05/2018 21:38:00 06/05/2018 23:45:00 DIS Outpatient FERCHO COLLINS DO [facility] CONTRACTIONS [id number] 05/01/2018 10:05:00 05/01/2018 23:59:59 CLS Outpatient FERCHO COLLINS DO [facility] RAD 20 WKS GESTATION [id number] 04/17/2018 11:30:00 04/17/2018 15:00:00 DIS Outpatient MARCELA SHANKAR MD [facility] MUCUS DISCHARGE [id number] 04/15/2018 20:22:00 04/15/2018 22:20:00 DIS Outpatient MARCELA SHANKAR MD [facility] WSo PRESSURE [id number] 03/17/2018 14:00:00 03/17/2018 23:59:59 CLS Outpatient FERCHO COLLINS DO [facility] RAD 16 WEEKS GESTATION OF [id number] 12/10/2016 20:45:00 12/10/2016 22:15:00 DIS Outpatient FERCHO COLLINS DO [facility] WSo CONTRACTIONS [id number] 11/03/2016 11:13:00 11/03/2016 12:17:00 DIS Emergency ZANDER MARTINS [facility] ER 27 WKS PREG/TICK BITE R THIGH [id number] 07/20/2016 11:49:00 07/20/2016 13:36:00 DIS Emergency ZANDER MARTINS [facility] ER DEHYRATION, 12.5 WEEKS [id number] 05/21/2016 10:11:00 05/21/2016 10:38:00 DIS Emergency PEDRO HENRIQUEZ, CHARLEE Monroe [facility] ER POSS SPIDER BITE ON RIGHT BREAST [id number] 12/03/2013 10:15:00 12/03/2013 13:16:00 DIS Emergency ALTAF HUMPHREYS APRN [facility] ER VOMITING/DIARRHEA [id number] 07/23/2013 10:38:00 07/23/2013 23:59:59 CLS Outpatient JOSELIN BORRERO MD [facility] CARD CP [id number] 07/22/2013 10:48:00 07/22/2013 23:59:59 CLS Outpatient JOSELIN BORRERO MD [facility] RAD 3 WK COUGH,SOB
[2018-06-13] MEDS ORDERED: fentaNYL INJECTION 100 MCG/2 ML AMP ONE ×2 (12:41→12:58)
--- NOTE | 2018-06-13 12:46 | History & Physical-OB ---
OB - Chief Complaint & HPI Date/Time Date of Admission: Date of Admission: Jun 13, 2018 at 11:56 Date seen by a Provider: Jun 13, 2018 Time Seen by a Provider: 12:45 Chief Complaint/History OB-Reason for Admission/Chief: Labor (prolonged ROM ) Hx : 4 Hx Para: 3 Expected Date of Delivery: Aug 03, 2018 Gestational Age in Weeks: 32 Gestational Age in Days: 5 Indication for : other (repeat) Other reason for admission: Patient presented 8 cm, a patient of my partners Dr. Collins who was transfered at 31 weeks for ROM, and left [facility] Yina GOSS. She has been followed outpatient with Dr. Collins for the past week Admission Nurse Assessment Rev: Yes Allergies and Home Medications Allergies Coded Allergies: No Known Drug Allergies (Unverified , 09/22/08) Home Medications Amoxicillin 250 Mg Capsule, 250 MG PO TID Prescribed by: FERCHO COLLINS on 06/09/181200 Erythromycin Base 250 Mg Capsule.dr, 250 MG PO TID Prescribed by: FERCHO COLLINS on 06/09/181200 Nifedipine 30 Mg Tab.er.24, 30 MG PO DAILY Prescribed by: FERCHO COLLINS on 06/05/182206 Vit No.124/Iron/FA 1 Each Tablet, 1 EACH PO DAILY, (Reported) Progesterone 200 Mg Cap, 200 MG PO DAILY Prescribed by: FERCHO COLLINS on 06/05/182206 Patient Home Medication List Home Medication List Reviewed: Yes OB - History Hx of Present Care: Yes Ultrasounds: Normal mid trimester US Obstetrical Complications: Other ( prolonged ROM) Medical Complications: None Obstetrical History Hx Multiple Gestation: No Hx Stillbirth: No Hx Complication: Yes Hx Induced Hypertens: No Hx Maternal Gestational Diabet: No Delivery History Hx Dystocia: No Hx Large For Gestational Age I: No Hx Small for Gestational Age I: No Hx Section: Yes (CS at term, breech in labor) Hx Vaginal Delivery Post C-Sec: No Hx Blood Disorders: No Patient Past Medical History NC Social History/Family History HIV/AIDS: No Sexually Transmitted Disease: No Immunizations Hepatitis A: Yes Hepatitis B: Yes Tetanus Booster (TDap): Less than 5yrs Date of Influenza Vaccine: May 13, 2018 OB - Admission Exam Physical Exam HEENT: NCAT Heart: Rhythm Normal Lungs: Clear Abdomen: Gravid Extremities: Normal Reflexes: Normal Cervical Dilatation: 8cm Effacement: 100% Station: 0 Membranes: Ruptured Amniotic Fluid: Clear Heart Rate: 130's Accelerations: Accelerations Present Decelerations: Variable Decelerations Fdc Variability: Average (6-25) Contractions on Admission: < 5 Minutes Apart OB - Assessment/Plan/Diagnosis Assessment Assessment: section Admission Dx 32 week IUP PPROM Previous section GBS unknown S/P BMZ x 2 doses last week and latency antibiotics Admission Status: Inpatient Order (span 2 midnights) Reason for Inpatient Admission: Repeat Plan Plan: Section HETAL CHOWDHURY DO Jun 13, 2018 12:46
[2018-06-13] MEDS ORDERED: proPOfol 200 MG/20 ML (DIPRIVAN) VIAL IV ONE ×2 (12:53)
[2018-06-13] MEDS ORDERED: LACTATED RINGERS 1,000 ML IV PRN (12:57)
[2018-06-13] MEDS ORDERED: MEASLES,MUMPS,RUBELLA 1 EA INJ SC SCH (13:00)
[2018-06-13] MEDS ORDERED: TETANUS,DIPTH,PERTUSS P/F (BOOSTRIX) 0.5 ML VIAL IM SCH (13:00)
[2018-06-13] MEDS ORDERED: ONDANSETRON 4 MG/2 ML (SDV) Z0FRAN IVP PRN ×2 (13:00→14:00)
[2018-06-13] MEDS ORDERED: HYDROmorphone 2 MG/ML VIAL (DILAUDID) IV PRN (13:00)
[2018-06-13 13:08] LABS: BASOPHILS % (AUTO) 0 % (0-10); EOSINOPHILS % (AUTO) 0 % (0-10); HEMATOCRIT 43 % (35-52); HEMOGLOBIN 14.9 G/DL (11.5-16.0); LYMPHOCYTES # (AUTO) 2.2 X 10^3 (1.0-4.0); LYMPHOCYTES % (AUTO) 11 % (12-44); MEAN CORPUSCULAR HEMOGLOBIN 31 PG (25-34); MEAN CORPUSCULAR HGB CONC 35 G/DL (32-36); MEAN CORPUSCULAR VOLUME 89 FL (80-99); MEAN PLATELET VOLUME 10.9 FL (7.4-10.4); MONOCYTES # (AUTO) 1.4 X 10^3 (0.0-1.0); MONOCYTES % (AUTO) 7 % (0-12); NEUTROPHILS # (AUTO) 16.4 X 10^3 (1.8-7.8); NEUTROPHILS % (AUTO) 82 % (42-75); PLATELET COUNT 218 10^3/uL (130-400); RED CELL DISTRIBUTION WIDTH 13.5 % (10.0-14.5)
[2018-06-13] MEDS ORDERED: RT-ALBUTEROL SULF 2.5 MG/3 ML PRE-MIX VIAL ONE (13:11)
[2018-06-13] MEDS ORDERED: morphine INJ 10 MG/ML 1ML (SYR OR VIAL) ONE (13:12)
[2018-06-13] MEDS ORDERED: DEXAMETHASONE 10 MG/ML (DECADRON) 1 ML VIAL ONE (13:17)
[2018-06-13] MEDS ORDERED: KETOROLAC 30 MG/ML VIAL ONE (13:17)
[2018-06-13] MEDS ORDERED: LIDOCAINE PF 2% 5 ML (XYLOCAINE) VIAL ONE (13:17)
[2018-06-13] MEDS ORDERED: ONDANSETRON 4 MG/2 ML (SDV) Z0FRAN ONE (13:17)
[2018-06-13] MEDS ORDERED: SEVOFLURANE (ULTANE) 15 ML INHAL SOLN ONE ×2 (13:17)
[2018-06-13] MEDS ORDERED: PHENYLEPHRINE 100 MCG/ML 10 ML (ANESTHESIA) SYR ONE (13:20)
--- NOTE | 2018-06-13 13:25 | Discharge Inst-Women's Service ---
Discharge Inst-Women's Serv Depart Medication/Instructions New, Converted or Re-Newed RX: RX on Chart Consults/Follow Up Additional Follow Up: Yes Orders/Referrals dr carmichael in 7-10 days, dr norton in 6 weeks Activity Activity: Activity as Tolerated Driving Instructions: No Driving for 1 Week NO SMOKING: NO SMOKING Nothing Inside Vagina: No Douching, No [place], No Tampons Diet Discharge Diet: No Restrictions Symptoms to Report to : Bleeding Excessive, Pain Increased, Fever Over 101 Degrees F, Vaginal Bleeding Increase, Questions/Concerns For Any Problems or Questions: Contact Your Physician Skin/Wound Care Infection Signs and Symptoms: Increased Redness, Foul Odor of Wound, Increased Drainage, Skin Itchy or Has a Rash, Increased Swelling, Temperature Above 101 F Operative Area Clean and Dry: Keep Incision Clean/Dry Stitches/[place]/Dermabond: Dermabond, Care of Stitches Bathing Instructions: HETAL Braun DO Jun 13, 2018 13:25
[2018-06-13 13:38] LABS: BAND NEUTROPHILS 2 %; LYMPHOCYTES % (MANUAL) 6 %; MONOCYTES % (MANUAL) 8 %; NEUTROPHILS % (MANUAL) 84 %
[2018-06-13 13:39] LABS: RBC MORPH N
--- NOTE | 2018-06-13 13:41 | NUR ---
Dr Connor notified of wbc result
--- NOTE | 2018-06-13 13:56 | Diagnostic Imaging Report ---
INDICATION: Status post emergency . Instrument count. FINDINGS: Supine portable view of the abdomen shows a normal bowel gas pattern. No foreign body is seen. IMPRESSION: Satisfactory postoperative abdomen. Dictated by: Dictated on workstation # [id number]
[2018-06-13] MEDS ORDERED: CATHETER FLUSH 10 ML SYR IV SCH (14:00)
[2018-06-13] MEDS ORDERED: PROMETHAZINE INJ 25 MG/ML (PHENERGAN) AMP IVP ONE (14:00)
[2018-06-13] MEDS ORDERED: morphine INJ 10 MG/ML 1ML (SYR OR VIAL) IVP ONE (14:00)
[2018-06-13] MEDS ORDERED: RT-ALBUTEROL SULF 2.5 MG/3 ML PRE-MIX VIAL INH ONE (14:00)
[2018-06-13] MEDS: KETOROLAC 30 MG/ML VIAL IVP SCH ×2 (14:07→20:47)
--- NOTE | 2018-06-13 14:40 | NUR ---
pt transferred to room 308 via bed with ROSA M Robledo @ side. report received from ROSA M Huang.
[2018-06-13 14:45] VITALS: BP 122/68
--- NOTE | 2018-06-13 15:11 | NUR ---
report received from ROSA M Montes. care assumed of pt.
[2018-06-13] MEDS ORDERED: OXYTOCIN/NORMAL SALINE 500 ML IV ONE (15:53)
[2018-06-13] MEDS: HYDROcodone/APAP 5 MG/325 MG (LORTAB) TAB PO PRN ×2 (15:55→20:44)
[2018-06-13 16:10] VITALS: BP 137/61
--- NOTE | 2018-06-13 16:20 | NUR ---
FFu/1. moderate rubra noted, no clots expressed. lyn-care offered. v-pad in place. cameron catheter to DD with clear, yellow urine noted in chamber.
[2018-06-13 16:30] LABS: AMPHETAMINE SCREEN, URINE NEGATIVE (NEGATIVE); BARBITURATE SCREEN URINE NEGATIVE (NEGATIVE); BENZODIAZEPINES SCREEN URINE NEGATIVE (NEGATIVE); CANNABINOID SCREEN, URINE POSITIVE (NEGATIVE); COCAINE SCREEN URINE NEGATIVE (NEGATIVE); METHADONE STAT NEGATIVE (NEGATIVE); METHAMPHETAMINE SCREEN URINE S NEGATIVE (NEGATIVE); OPIATE SCREEN URINE NEGATIVE (NEGATIVE); OXYCODONE STAT NEGATIVE (NEGATIVE); PROPOXYPHENE STAT NEGATIVE (NEGATIVE); TRICYCLIC ANTIDEPRESSANTS SCRE NEGATIVE (NEGATIVE)
--- NOTE | 2018-06-13 18:30 | NUR ---
regular diet served.
--- NOTE | 2018-06-13 19:45 | NUR ---
pt requesting to ambulate in the halls. pt assisted to bathroom. pericare completed, pad changed. pt ambulated in the halls with s/o at side. pt assisted back to bed. assessment completed. pt denies any needs at this time. will continue to monitor.
[2018-06-13 20:10] VITALS: BP 104/66
[2018-06-13] MEDS: DOCUSATE SODIUM 100 MG (COLACE) CAP PO SCH (21:00)
--- NOTE | 2018-06-13 23:09 | OPERATIVE REPORT ---
DATE OF SERVICE: PREOPERATIVE DIAGNOSES: 1. A 28-year-old G4, P3 at 32 weeks gestation. 2. prolonged rupture of membranes. 3. Active labor at 8 cm dilation. POSTOPERATIVE DIAGNOSES: 1. A 28-year-old G4, P3 at 32 weeks gestation. 2. prolonged rupture of membranes. 3. Active labor at 8 cm dilation. PROCEDURE: Emergency stat section. SURGEON: Jean Connor DO. ANESTHESIA: General. ESTIMATED BLOOD LOSS: 500 mL. URINE OUTPUT: 125 mL clear at the end of the procedure. FLUIDS: 1500 mL of lactated Ringer's solution. FINDINGS: A live male , weight 3 pounds 9 ounces, Apgars of 8 and 8. Grossly normal appearing uterus, bilateral fallopian tubes and ovaries. INDICATIONS FOR PROCEDURE: A 28-year-old female presented to the labor and delivery unit 8 cm dilated, mickie every 2 minutes. She ruptured approximately one week ago and was sent home on latency antibiotics after leaving from [facility] after transfer took place due to a higher level of care. She left there AMA and had been monitored with my partner, Dr. Suárez in the office since then. She reported started mickie earlier this morning and was going to wait until later this afternoon before coming in for NST; however, she became acutely more uncomfortable and proceeded to the hospital and was found to be 8 cm dilated. I called for emergency due to proximity of delivery and advanced cervical dilation. Anesthesia presented rapidly as well as OR staff. We took the patient back to the operating room where general anesthesia was found to be adequate. OPERATIVE REPORT IN DETAIL: Once in the operating room, general anesthesia was found to be adequate, placed in supine position with leftward tilt, prepped and draped in normal sterile fashion. After notified by anesthesia that airway was secured, I proceed with a Pfannenstiel skin incision to the previously existing scar using a knife and carried to underlying fascia using Bovie cautery. Fascial incision extended laterally using blunt traction. The rectus muscles were dissected down the midline using blunt traction, which exposed the peritoneum, which entered bluntly and extended using blunt traction. I placed an Rubén ring retractor in the peritoneal incision and make a low transverse incision after excellent lateral sidewall retractor is noted. Once I made my low transverse incision, I extended the uterine incision laterally and superiorly using gross traction. The infant was found in the vertex presentation. With gentle fundal pressure, the infant's head was elevated up to the incision and delivered through the incision where the nares and oropharynx were bulb suctioned. Anterior and posterior shoulder delivered and then brought into the operative field where the cord was doubly clamped and cut and was handed off to Dr. Schneider, who was present for delivery. Cord blood was collected. Three-vessel cord with intact placenta was delivered spontaneously thereafter. IV Pitocin was initiated to facilitate uterine contraction. Uterine fundus was firm with bimanual massage. Uterus was exteriorized and cleared of immature clots and debris. I then proceeded with closing the uterine incision using 0 Vicryl suture in running locked fashion. Second layer of imbricating 0 Monocryl was placed. There is an extension of the left side of the uterine incision down into the cervix, which has to be suture ligated with 3-0 Vicryl suture in a [id number] fashion. This is done on three different occasions, which allowed us to achieve hemostasis and reapproximation of that laceration, after which there was no active bleeding noted from any of my dissection planes. The uterus was placed back within the pelvis where it was copiously irrigated using normal saline and there was no active bleeding noted from any of my dissection planes. I placed Surgicel hemostatic agent over the left apex of the incision due to the extensive bleeding that was occurring after delivery. I then also covered the remainder of the incision using Interceed and adhesive. I then proceeded with closing the peritoneum using 3-0 Vicryl suture in a running fashion. Rectus muscle was reapproximated using 3-0 Vicryl suture in interrupted fashion. The fascia was reapproximated using 0 Vicryl suture in running fashion. Subcutaneous tissue was reapproximated using 3-0 plain in interrupted subcutaneous stitch and skin reapproximated using 4-0 Monocryl in running subcuticular. Dermabond was applied to the incision and sterile dressing with adhesive white tape. The patient tolerated the procedure well and sent to recovery area in stable condition. Lap and sponge counts were correct at the end of the procedures. Instrument counts were correct as well. One gram of Ancef was given preoperatively for infection prophylaxis. Job ID: [id number] DocumentID: [id number] Dictated Date: 06/13/2018 13:34:36 Clinical Support Associate Date: 06/13/2018 23:08:53 Dictated By: DO MAGDALENO PIERSON
[2018-06-14 00:06] VITALS: BP 107/62
--- NOTE | 2018-06-14 02:25 | NUR ---
pt up to the bathroom pericare completed. pad and panties changed. pt tolerated well.
[2018-06-14] MEDS: KETOROLAC 30 MG/ML VIAL IVP SCH (02:27)
[2018-06-14 04:30] VITALS: BP 126/58
--- NOTE | 2018-06-14 05:46 | NUR ---
MARISOL De Los Santos, PT REQUESTING TO SHOWER. SHOWER SET UP
--- NOTE | 2018-06-14 06:02 | NUR ---
abdominal dsg removed. incision c/d/i
[2018-06-14 07:09] LABS: BASOPHILS % (AUTO) 0 % (0-10); EOSINOPHILS % (AUTO) 0 % (0-10); HEMATOCRIT 36 % (35-52); HEMOGLOBIN 12.5 G/DL (11.5-16.0); LYMPHOCYTES # (AUTO) 1.3 X 10^3 (1.0-4.0); LYMPHOCYTES % (AUTO) 5 % (12-44); MEAN CORPUSCULAR HEMOGLOBIN 31 PG (25-34); MEAN CORPUSCULAR HGB CONC 34 G/DL (32-36); MEAN CORPUSCULAR VOLUME 91 FL (80-99); MEAN PLATELET VOLUME 11.1 FL (7.4-10.4); MONOCYTES # (AUTO) 2.3 X 10^3 (0.0-1.0); MONOCYTES % (AUTO) 8 % (0-12); NEUTROPHILS # (AUTO) 24.1 X 10^3 (1.8-7.8); NEUTROPHILS % (AUTO) 87 % (42-75); PLATELET COUNT 228 10^3/uL (130-400); RED CELL DISTRIBUTION WIDTH 13.3 % (10.0-14.5); WHITE BLOOD COUNT 27.6 10^3/uL (4.3-11.0)
--- NOTE | 2018-06-14 09:03 | Anesthesia-General Post-Op ---
General Patient Condition Mental Status/LOC: Same as Preop Cardiovascular: Satisfactory Nausea/Vomiting: Absent Respiratory: Satisfactory Pain: Controlled Complications: Absent Post Op Complications Complications None Follow Up Care/Instructions Patient Instructions None needed. Anesthesia/Patient Condition Patient Condition Patient is doing well, no complaints, stable vital signs, no apparent adverse anesthesia problems. No complications reported per nursing. ELLYN WASHBURN CRNA Jun 14, 2018 09:03
--- NOTE | 2018-06-14 09:55 | NUR ---
here. dismissal orders received.
[2018-06-14 10:04] VITALS: BP 127/61
[2018-06-14] MEDS: DOCUSATE SODIUM 100 MG (COLACE) CAP PO SCH (10:04)
--- NOTE | 2018-06-14 10:04 | NUR ---
initial shift assessment completed, see interventions for further. abd incision KRYSTAL with incision edges well approximated. Dermabond intact @ site. scheduled a.m. medications given, see eMar for further.
--- NOTE | 2018-06-14 10:13 | Postpartum Progress Note ---
Note Note Day # 1 Subjective: Patient is without complaints. Ambulating, voiding. Tolerating a regular diet without nausea or vomiting. Normal lochia. Pain is well controlled with oral pain medications. Objective: Physical Exam: General - Alert and oriented, no apparent distress Abdomen - Soft, appropriately tender to palpation, non-distended, fundus firm at umbilicus Extremities - no edema, negative Funmi's bilaterally Incision- c/d/i Assessment: POD 1 RLTCS Leukocytosis Tobacco use in pregnanchy Plan: Routine care. Encourage breast feeding. Encourage ambulation. Ferrous sulfate supplementation. Plan for discharge today, due to 32 week infant transfer. PO precautions and endometritis precautions reviewed. Sent home on Keflex. Vitals - Labs Vital Signs - I&O Vital Signs Date Time Temp Pulse Resp B/P (MAP) Pulse Ox O2 Delivery O2 Flow Rate FiO2 06/14/18 04:30 98.0 87 18 126/58 (80) 98 Room Air 06/14/18 00:06 97.9 80 18 107/62 (77) 98 Room Air 06/13/18 20:10 97.8 100 18 104/66 (79) 98 Room Air 06/13/18 18:21 Room Air 06/13/18 16:10 98.4 91 18 137/61 (86) 100 Room Air 06/13/18 14:45 98.9 98 18 122/68 (86) 94 Room Air 06/13/18 12:40 100 Room Air 06/13/18 12:05 96.7 101 18 138/83 (101) Room Air I & O 06/14/18 06:59 Intake Total 610 ml Output Total 1525 ml Balance -915 ml Labs Laboratory Tests 06/13/18 12:40: Urine Opiates Screen NEGATIVE, Urine Oxycodone Screen NEGATIVE, Urine Methadone Screen NEGATIVE, Urine Propoxyphene Screen NEGATIVE, Urine Barbiturates Screen NEGATIVE, Ur Tricyclic Antidepressants Screen NEGATIVE, Urine Phencyclidine Screen NEGATIVE, Urine Amphetamines Screen NEGATIVE, Urine Methamphetamines Screen NEGATIVE, Urine Benzodiazepines Screen NEGATIVE, Urine Cocaine Screen NEGATIVE, Urine Cannabinoids Screen POSITIVEH 06/13/18 12:50: White Blood Count 20.0H, Red Blood Count 4.83, Hemoglobin 14.9#, Hematocrit 43, Mean Corpuscular Volume 89, Mean Corpuscular Hemoglobin 31, Mean Corpuscular Hemoglobin Concent 35, Red Cell Distribution Width 13.5, Platelet Count 218, Mean Platelet Volume 10.9H, Neutrophils (%) (Auto) 82H, Lymphocytes (%) (Auto) 11L, Monocytes (%) (Auto) 7, Eosinophils (%) (Auto) 0, Basophils (%) (Auto) 0, Neutrophils # (Auto) 16.4H, Lymphocytes # (Auto) 2.2, Monocytes # (Auto) 1.4H, Eosinophils # (Auto) 0.0, Basophils # (Auto) 0.0, Neutrophils % (Manual) 84, Lymphocytes % (Manual) 6, Monocytes % (Manual) 8, Band Neutrophils 2, Blood Morphology Comment N 06/13/18 13:26: Glucometer 59*L 06/14/18 06:11: White Blood Count 27.6H, Red Blood Count 4.00L, Hemoglobin 12.5, Hematocrit 36, Mean Corpuscular Volume 91, Mean Corpuscular Hemoglobin 31, Mean Corpuscular Hemoglobin Concent 34, Red Cell Distribution Width 13.3, Platelet Count 228, Mean Platelet Volume 11.1H, Neutrophils (%) (Auto) 87H, Lymphocytes (%) (Auto) 5L, Monocytes (%) (Auto) 8, Eosinophils (%) (Auto) 0, Basophils (%) (Auto) 0, Neutrophils # (Auto) 24.1H, Lymphocytes # (Auto) 1.3, Monocytes # (Auto) 2.3H, Eosinophils # (Auto) 0.0, Basophils # (Auto) 0.0 HETAL CHOWDHURY DO Jun 14, 2018 10:13
--- NOTE | 2018-06-14 11:30 | NUR ---
dismissal instructions given, verbalizes understanding. reviewed dismissal medications, administration schedule and dosage. instructed pt to schedule follow up appointments. signature page signed, placed on chart.
--- NOTE | 2018-06-14 11:35 | NUR ---
pt ambulated to private vehicle with s/o @ side. pt stable with no sx's of distress noted.
[2018-06-14] MEDS ORDERED: IBUPROFEN 600 MG (MOTRIN) TAB PO SCH (13:00)
[2018-06-14] MEDS ORDERED: CEPHALEXIN 250 MG (KEFLEX) CAP PO SCH (13:00)
--- NOTE | 2018-06-16 11:48 | Physician Query-Final Dx ---
JORDAN MEDINA 06/16/18 1148: Final Diagnosis Give Final Diagnosis Please give Final Diagnosis HETAL CHOWDHURY DO 06/17/18 0807: Final Diagnosis Give Final Diagnosis POD 2 RLTCS JORDAN MEDINA Jun 16, 2018 11:48 HETAL CHOWDHURY DO Jun 17, 2018 08:07
== END 2018-06-14 11:35 | disposition home or self-care (01) | DRG 786 ==
LOC: WSo 11:55 → LDRP 11:56
PROVIDERS: ADMIT Obstetrics & Gynecology; ATTEND Obstetrics & Gynecology
PROC: 10D00Z1 Extraction of Products of Conception, Low, Open Approach (ICD-10-PCS; principal; 2018-06-13 12:45)
DX: O42.113 Preterm premature rupture of membranes, onset of labor more than 24 hours following rupture, third trimester (principal); O34.33 Maternal care for cervical incompetence, third trimester; O34.211 Maternal care for low transverse scar from previous cesarean delivery; O99.334 Smoking (tobacco) complicating childbirth; F17.210 Nicotine dependence, cigarettes, uncomplicated; Z3A.32 32 weeks gestation of pregnancy; Z37.0 Single live birth
CPT/HCPCS: 36415; 74018; 80306; 82962; 85007; 85025; 85027; 86850; 86900; 86901; 99212

== ENCOUNTER 2018-12-15 11:03 | Emergency (ER) | payer MEDICAID ==
[~2018-12-15] VITALS: Ht 157.5 cm; Wt 59.0 kg
[~2018-12-15 11:03] MED LIST changes: +ACHD5005 PO; +AMOX250C PO; +CEPH250C PO; +DOCU100C37 PO; +ERYT250C61 PO; +IBUP-844 PO
--- NOTE | 2018-12-15 11:42 | NUR ---
AMB TO ROOM WITHOUT PROBLEM REPORTS THAT HER HEADACHE IS WORSE THAN IN TRIAGE.
[2018-12-15] MEDS ORDERED: KETOROLAC 30 MG/ML VIAL IM ONE (12:15)
--- NOTE | 2018-12-15 12:37 | ED Neurological Problem ---
General Chief Complaint: Neurological Problems Stated Complaint: LEFT SIDED NUMBNESS Nursing Triage Note: ARRIVED VIA AMB WITH COMPLAINTS OF LEFT SIDED ARM NUMBNESS THAT IS NOW CAUSING HER FACE AND RIGHT ARM TO BECOME NUMB. STATES SHE HAD A SEVERE HEADACHE YESTERDAY THAT SEEMS BETTER TODAY. HX OF ANXIETY, PTSD, AND POST DEPRESSION BUT DOES NOT THINK THIS IS DUE TO ANY OF THESE. Nursing Sepsis Screen: No Definite Risk Source: patient Exam Limitations: no limitations History of Present Illness Date Seen by Provider: Dec 15, 2018 Time Seen by Provider: 11:54 Initial Comments This 28-year-old young lady presents to emergency room with complaints of headache that started yesterday. Then today while driving home from [employer] around 09:00 she developed left arm numbness that progressed up toward her neck. This lasted about 30 minutes. It resolved and then started on the right side and progressed up her right arm. This numbness is now dissipating. She had some blurry vision yesterday which has resolved. Patient has history of migraines but has never experienced numbness like this before. She took ibuprofen yesterday but has not taken any medications for this today. Allergies and Home Medications Allergies Coded Allergies: onion (Verified Allergy, Unknown, 06/14/18) Home Medications Docusate Sodium 100 Mg Capsule, 100 MG PO BID PRN for CONSTIPATION-1ST LINE Prescribed by: HETAL CHOWDHURY on 06/13/18 1324 Hydrocodone Bit/Acetaminophen 1 Tab Tab, 1 TAB PO Q4H PRN for PAIN-MODERATE Prescribed by: HETAL CHOWDHURY on 06/13/18 1324 Ibuprofen 600 Mg Tablet, 600 MG PO Q6H Prescribed by: HETAL CHOWDHURY on 06/13/18 1324 Patient Home Medication List Home Medication List Reviewed: Yes Review of Systems Review of Systems Constitutional: no symptoms reported Eyes: No Symptoms Reported Ears, Nose, Mouth, Throat: no symptoms reported Respiratory: no symptoms reported Cardiovascular: no symptoms reported Gastrointestinal: no symptoms reported Genitourinary: no symptoms reported : No LMP: Oct 15, 2018 Musculoskeletal: no symptoms reported Skin: no symptoms reported Psychiatric/Neurological: See HPI Endocrine: No Symptoms Reported Hematologic/Lymphatic: No Symptoms Reported Past Mkgeyym-Cggetn-Fqgxnl Hx Past Med/Social Hx: Reviewed and Corrections made Patient Social History Alcohol Use: Denies Use Recreational Drug Use: Yes Drug of Choice: POT Smoking Status: Current Everyday Smoker Type Used: Cigarettes Former Smoker, Quit: Jun 05, 2018 Recent Foreign Travel: No Contact w/Someone Who Travel: No Recent Infectious Disease Expo: No Recent Hopitalizations: No Immunizations Up To Date Tetanus Booster (TDap): Less than 5yrs Date of Influenza Vaccine: May 13, 2018 Seasonal Allergies Seasonal Allergies: No Past Medical History Surgeries: Yes Section Respiratory: No Cardiac: No (heart cath with no intervention) Neurological: Yes Headaches /Migraines : No Reproductive Disorders: Yes (pcos, miscarriage x 1) 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 Sexually Transmitted Disease: No HIV/AIDS: No Genitourinary: No Kidney Infection Gastrointestinal: No Musculoskeletal: No Endocrine: Yes (early onset dm) Diabetes, Non-Insulin dep Cancer: No Psychosocial: Yes (POST DEPRESSION) Anxiety, PTSD Integumentary: No Blood Disorders: No Adverse Reaction/Blood Tranf: No Family Medical History Cardiovascular disease 19 MOTHER Hypertension 19 MOTHER Seizure disorder G8 SISTER No Pertinent Family Hx Physical Exam Vital Signs Vital Signs - First Documented 12/15/18 11:05 Temp 98.4 Pulse 93 Resp 16 B/P (MAP) 118/74 (89) Pulse Ox 97 O2 Delivery Room Air Capillary Refill : Less Than 3 Seconds Height, Weight, BMI Height: 5'2.00" Weight: 130lbs. 0.8oz. [id number]; 24.8 BMI Method:Estimated General Appearance: WD/WN, no apparent distress HEENT: PERRL/EOMI, normal ENT inspection Neck: normal inspection Respiratory: lungs clear, normal breath sounds, no respiratory distress, no accessory muscle use Cardiovascular: regular rate, rhythm, no edema, no murmur Gastrointestinal: non tender, soft Extremities: normal inspection, no pedal edema Neurologic/Psychiatric: [employer] solution architect II-XII nml as tested, no motor/sensory deficits, alert, normal mood/affect, oriented x 3 Crainal Nerves: normal hearing, normal speech, PERRL Coordination/Gait: normal finger to nose, normal gait Motor/Sensory: no motor deficit, no sensory deficit Skin: normal color, warm/dry Progress/Results/Core Measures Results/Orders My Orders Orders - CHARLEE VASQUEZ MD Ketorolac Injection (Toradol Injection) (12/15/18 12:15) Urine Bedside (12/15/18 12:29) Medications Given in ED Current Medications Medications Dose Ordered Sig/Shmuel Route Start Time Stop Time Status Last Admin Dose Admin Ketorolac Tromethamine 30 mg ONCE ONCE IM 12/15/18 12:15 12/15/18 12:16 DC 12/15/18 12:21 30 MG Vital Signs/I&O 12/15/18 12/15/18 11:05 12:52 Temp 98.4 Pulse 93 85 Resp 16 18 B/P (MAP) 118/74 (89) 108/60 (76) Pulse Ox 97 98 O2 Delivery Room Air Room Air Blood Pressure Mean: 89 Progress Progress Note : Progress Note Margin neurologic symptoms associated with headache her suggestive of atypical migraine. Patient received a Toradol injection. She declined IV medications and hydration. Departure Impression Primary Impression: Atypical migraine Disposition: 01 HOME, SELF-CARE Condition: Improved Departure-Patient Inst. Decision time for Depature: 12:25 Referrals: NO,LOCAL PHYSICIAN (PCP) Primary Care Physician FERCHO COLLINS DO (Family) Primary Care Physician Patient Instructions: Migraine Headache (DC) Add. Discharge Instructions: For pain you may take ibuprofen up to 600 mg every 6 hours as needed and/or Tylenol (acetaminophen) up to 1000 mg every 6 hours as needed. You may use nausea medication you have at home to control any nausea associated with migraines. Follow-up with your primary care provider as soon as possible to discuss migraines, prevention of headaches, and treatment. Return to emergency room if you have any worsening of symptoms. All discharge instructions reviewed with patient and/or family. Voiced understanding. Work/School Note: Work Release Form Date Seen in the Emergency Department: Dec 15, 2018 Return to Work: Dec 16, 2018 Restrictions: No Restrictions CHARLEE VASQUEZ MD Dec 15, 2018 12:37
[2018-12-15 12:52] VITALS: BP 108/60
== END 2018-12-15 12:52 | disposition home or self-care (01) ==
LOC: EDUNIT# 11:03 → ER 11:04
DX: G43.909 Migraine, unspecified, not intractable, without status migrainosus (principal); F41.9 Anxiety disorder, unspecified; E11.9 Type 2 diabetes mellitus without complications; F43.10 Post-traumatic stress disorder, unspecified; F17.210 Nicotine dependence, cigarettes, uncomplicated; Z82.49 Family history of ischemic heart disease and other diseases of the circulatory system
CPT/HCPCS: 84703; 99284

== ENCOUNTER 2020-05-24 10:09 | Emergency (ER) | payer MEDICAID, OTHER ==
[~2020-05-24] VITALS: Ht 16 cm; Wt 60.4 kg
[~2020-05-24 10:09] MED LIST changes: -ERYT250C61 PO; +ERYT250C62 PO
--- NOTE | 2020-05-24 10:09 | NUR ---
MOTHER SHE REPORTS SHE GOT ALL KIDS OUT OF CAR SEAT AND ALL WAS WALKING A SCENE
--- NOTE | 2020-05-24 10:28 | NUR ---
BLOOD DRAWN BY LAB
[2020-05-24] MEDS ORDERED: ACETAMINOPHEN 500 MG TAB (TYLENOL) PO ONE (10:30)
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
[2020-05-24 10:39] LABS: HEMOGLOBIN 13.2 g/dL (11.5-16.0); MEAN PLATELET VOLUME 10.4 fL (9.0-12.2); WHITE BLOOD COUNT 11.4 10^3/uL (4.3-11.0)
--- NOTE | 2020-05-24 10:39 | NUR ---
AMB TO BATHROOM . PATIENT REPORT BABY IS KICKING AND MOVING.
--- NOTE | 2020-05-24 10:47 | NUR ---
DR PERES ASKED PATIENT X2 IF SHE WOULD LIKE SONO TO CHECK BABY DECLINED BOTH TIMES.
[2020-05-24 10:50] LABS: ALBUMIN 3.5 GM/DL (3.2-4.5); CHLORIDE 107 MMOL/L (98-107); POTASSIUM 3.8 MMOL/L (3.6-5.0); SODIUM 136 MMOL/L (135-145)
[2020-05-24 10:50] LABS: BILIRUBIN,URINE NEGATIVE (NEGATIVE); CLARITY,URINE CLEAR; COLOR,URINE YELLOW; GLUCOSE, URINE (UA) NEGATIVE (NEGATIVE); KETONES,URINE NEGATIVE (NEGATIVE); LEUKOCYTE ESTERASE ,URINE 1+ (NEGATIVE); NITRITE,URINE NEGATIVE (NEGATIVE); PROTEIN,URINE NEGATIVE (NEGATIVE)
[2020-05-24 10:51] LABS: CALCIUM 9.4 MG/DL (8.5-10.1)
[2020-05-24 10:53] LABS: GLUCOSE 85 MG/DL (70-105); TOTAL PROTEIN 6.7 GM/DL (6.4-8.2)
[2020-05-24 10:54] LABS: BILIRUBIN,TOTAL 0.5 MG/DL (0.1-1.0); CARBON DIOXIDE 20 MMOL/L (21-32)
[2020-05-24 10:56] LABS: ALKALINE PHOSPHATASE 83 U/L (40-136); CREATININE SERUM 0.53 MG/DL (0.60-1.30); GFR ESTIMATED > 60
[2020-05-24 10:57] LABS: BUN/CREATININE RATIO 19
[2020-05-24 10:58] LABS: BILIRUBIN,DIRECT 0.2 MG/DL (0.0-0.3); BILIRUBIN,INDIRECT 0.3 MG/DL
[2020-05-24 10:59] LABS: BACTERIA,URINE FEW /HPF
[2020-05-24 10:59] LABS: ALANINE AMINOTRANSFERASE 12 U/L (0-55)
[2020-05-24] MEDS ORDERED: ONDA4TAB11 PO (11:17)
[2020-05-24] MEDS ORDERED: ACHD5005 PO (11:17)
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
[2020-05-24 11:26] VITALS: BP 118/76
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
== END 2020-05-24 11:33 | disposition home or self-care (01) ==
LOC: EDUNIT# 10:15 → ER 10:16
DX: O9A.212 Injury, poisoning and certain other consequences of external causes complicating pregnancy, second trimester (principal); S42.021A Displaced fracture of shaft of right clavicle, initial encounter for closed fracture; O99.352 Diseases of the nervous system complicating pregnancy, second trimester; G43.909 Migraine, unspecified, not intractable, without status migrainosus; O99.332 Smoking (tobacco) complicating pregnancy, second trimester; R40.2140 Coma scale, eyes open, spontaneous, unspecified time; R40.2250 Coma scale, best verbal response, oriented, unspecified time; R40.2360 Coma scale, best motor response, obeys commands, unspecified time; F17.210 Nicotine dependence, cigarettes, uncomplicated; Z87.440 Personal history of urinary (tract) infections; Z87.59 Personal history of other complications of pregnancy, childbirth and the puerperium; Z79.2 Long term (current) use of antibiotics; Z3A.23 23 weeks gestation of pregnancy; V49.40XA Driver injured in collision with unspecified motor vehicles in traffic accident, initial encounter; Y92.410 Unspecified street and highway as the place of occurrence of the external cause
CPT/HCPCS: 73000; 80048; 80076; 81000; 84703; 85027; 87088; 93005; 99284; A4565; G0480; 36415; 80320

== ENCOUNTER 2021-03-03 19:13 | Emergency (ER) | payer MEDICAID ==
[~2021-03-03] VITALS: Ht 160 cm; Wt 50.3 kg
[~2021-03-03 19:13] MED LIST changes: +ONDA4TAB11 PO; -SULF1TAB35 PO; +SULF1TAB38 PO
[2021-03-03] MEDS ORDERED: KETOROLAC 30 MG/ML VIAL IVP ONE (19:30)
[2021-03-03] MEDS ORDERED: ONDANSETRON 4 MG/2 ML (SDV) Z0FRAN IVP ONE (19:30)
[2021-03-03 19:39] LABS: BASOPHILS # (AUTO) 0.1 10^3/uL (0.0-0.1); BASOPHILS % (AUTO) 0 % (0-10); EOSINOPHILS # (AUTO) 0.1 10^3/uL (0.0-0.3); EOSINOPHILS % (AUTO) 1 % (0-10); HEMATOCRIT 42 % (35-52); HEMOGLOBIN 14.1 g/dL (11.5-16.0); LYMPHOCYTES # (AUTO) 3.1 10^3/uL (1.0-4.0); LYMPHOCYTES % (AUTO) 21 % (12-44); MEAN CORPUSCULAR HEMOGLOBIN 29 pg (25-34); MEAN CORPUSCULAR HGB CONC 34 g/dL (32-36); MEAN CORPUSCULAR VOLUME 85 fL (80-99); MEAN PLATELET VOLUME 10.3 fL (9.0-12.2); MONOCYTES # (AUTO) 1.5 10^3/uL (0.0-1.0); MONOCYTES % (AUTO) 10 % (0-12); NEUTROPHILS # (AUTO) 9.9 10^3/uL (1.8-7.8); NEUTROPHILS % (AUTO) 67 % (42-75); PLATELET COUNT 227 10^3/uL (130-400); WHITE BLOOD COUNT 14.7 10^3/uL (4.3-11.0)
--- NOTE | 2021-03-03 19:39 | ED General ---
General Chief Complaint: COVID19 Suspect/Confirmed Stated Complaint: SORE THROAT,FEVER,CHILLS,VOMITING BLOOD Source of Information: Patient Exam Limitations: No Limitations History of Present Illness Date Seen by Provider: Mar 03, 2021 Time Seen by Provider: 19:38 Initial Comments To ER with sore throat chills nausea vomiting for 2 to 3 days. She also has body aches but no cough. Timing/Duration: 1-2 Days Severity: Moderate Associated Systoms: Fever/Chills, Nausea/Vomiting Allergies and Home Medications Allergies Coded Allergies: onion (Verified Allergy, Unknown, 06/14/18) Patient Home Medication List Home Medication List Reviewed: Yes Docusate Sodium (Docusate Sodium) 100 Mg Capsule, 100 MG PO BID PRN for CONSTIPATION-1ST LINE Prescribed by: HETAL CHOWDHURY on 06/13/18 1324 Hydrocodone Bit/Acetaminophen (Lortab 5 Mg Tablet) 1 Tab Tab, 1 TAB PO Q4H PRN for PAIN-MODERATE Prescribed by: HETAL CHOWDHUYR on 06/13/18 1324 Hydrocodone/Acetaminophen (Hydrocodone-Acetamin 5-325 mg) 1 Each Tablet, 1 TAB PO Q6H PRN for PAIN-MODERATE (5-7) Prescribed by: ZENOBIA PERES on 05/24/20 1118 Ibuprofen (Ibu) 600 Mg Tablet, 600 MG PO Q6H Prescribed by: HETAL CHOWDHURY on 06/13/18 1324 Ondansetron (Ondansetron Odt) 4 Mg Tab.rapdis, 4 MG PO Q6H PRN for NAUSEA/VOMITING Prescribed by: ZENOBIA PERES on 05/24/20 1117 Review of Systems Review of Systems Constitutional: see HPI, chills, malaise, weakness EENTM: see HPI Respiratory: see HPI Cardiovascular: no symptoms reported Genitourinary: no symptoms reported Musculoskeletal: no symptoms reported Skin: no symptoms reported Psychiatric/Neurological: No Symptoms Reported Hematologic/Lymphatic: No Symptoms Reported Past Ypugtbc-Ymempc-Xjkrnn Hx Immunizations Up To Date Tetanus Booster (TDap): Unknown Seasonal Allergies Seasonal Allergies: No Past Medical History Surgeries: Yes Section Respiratory: No Cardiac: No (heart cath with no intervention) Neurological: Yes Headaches /Migraines Reproductive Disorders: Yes (pcos, miscarriage x 1) 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 Sexually Transmitted Disease: No HIV/AIDS: No Genitourinary: No Kidney Infection Gastrointestinal: No Musculoskeletal: No Endocrine: Yes (early onset dm) Diabetes, Non-Insulin dep Cancer: No Psychosocial: Yes (POST DEPRESSION) Anxiety, PTSD Integumentary: No Blood Disorders: No Adverse Reaction/Blood Tranf: No Family Medical History Cardiovascular disease 19 MOTHER Hypertension 19 MOTHER Seizure disorder G8 SISTER No Pertinent Family Hx Physical Exam Vital Signs Vital Signs - First Documented 03/03/21 19:18 Temp 37.2 Pulse 117 Resp 20 B/P (MAP) 130/77 (94) Pulse Ox 97 O2 Delivery Room Air Capillary Refill : Height, Weight, BMI Height: 5'2.00" Weight: 130lbs. 0.8oz. 58.763426iq; 2359.00 BMI Method:Estimated General Appearance: No Apparent Distress, WD/WN Eyes: Bilateral Eye Normal Inspection, Bilateral Eye PERRL, Bilateral Eye EOMI HEENT: PERRL/EOMI, Normal ENT Inspection Neck: Full Range of Motion, Normal Inspection Respiratory: No Accessory Muscle Use, No Respiratory Distress Cardiovascular: Normal Peripheral Pulses, Tachycardia Gastrointestinal: Normal Bowel Sounds, Non Tender, Soft Extremity: Normal Capillary Refill, Normal Inspection Neurologic/Psychiatric: Alert, Oriented x3 Skin: Normal Color, Warm/Dry Progress/Results/Core Measures Suspected Sepsis SIRS Temperature: Pulse: Respiratory Rate: Laboratory Tests 03/03/21 19:22: White Blood Count 14.7H Blood Pressure / Mean: Laboratory Tests 03/03/21 19:22: Creatinine 0.68, INR Comment 1.0, Platelet Count 227, Total Bilirubin 1.2H Results/Orders Lab Results Laboratory Tests Test 03/03/21 19:22 Range/Units White Blood Count 14.7 H 4.3-11.0 10^3/uL Red Blood Count 4.93 3.80-5.11 10^6/uL Hemoglobin 14.1 11.5-16.0 g/dL Hematocrit 42 35-52 % Mean Corpuscular Volume 85 80-99 fL Mean Corpuscular Hemoglobin 29 25-34 pg Mean Corpuscular Hemoglobin Concent 34 32-36 g/dL Red Cell Distribution Width 13.8 10.0-14.5 % Platelet Count 227 130-400 10^3/uL Mean Platelet Volume 10.3 9.0-12.2 fL Immature Granulocyte % (Auto) 1 % Neutrophils (%) (Auto) 67 42-75 % Lymphocytes (%) (Auto) 21 12-44 % Monocytes (%) (Auto) 10 0-12 % Eosinophils (%) (Auto) 1 0-10 % Basophils (%) (Auto) 0 0-10 % Neutrophils # (Auto) 9.9 H 1.8-7.8 10^3/uL Lymphocytes # (Auto) 3.1 1.0-4.0 10^3/uL Monocytes # (Auto) 1.5 H 0.0-1.0 10^3/uL Eosinophils # (Auto) 0.1 0.0-0.3 10^3/uL Basophils # (Auto) 0.1 0.0-0.1 10^3/uL Immature Granulocyte # (Auto) 0.1 0.0-0.1 10^3/uL Neutrophils % (Manual) 68 % Lymphocytes % (Manual) 23 % Monocytes % (Manual) 9 % Blood Morphology Comment NORMAL Prothrombin Time 14.0 12.2-14.7 SEC INR Comment 1.0 0.8-1.4 Sodium Level 135 135-145 MMOL/L Potassium Level 3.9 3.6-5.0 MMOL/L Chloride Level 102 98-107 MMOL/L Carbon Dioxide Level 20 L 21-32 MMOL/L Anion Gap 13 5-14 MMOL/L Blood Urea Nitrogen 14 7-18 MG/DL Creatinine 0.68 0.60-1.30 MG/DL Estimat Glomerular Filtration Rate 103 BUN/Creatinine Ratio 21 Glucose Level 88 70-105 MG/DL Calcium Level 9.7 8.5-10.1 MG/DL Corrected Calcium 9.5 8.5-10.1 MG/DL Total Bilirubin 1.2 H 0.1-1.0 MG/DL Aspartate Amino Transf (AST/SGOT) 26 5-34 U/L Alanine Aminotransferase (ALT/SGPT) 47 0-55 U/L Alkaline Phosphatase 112 40-136 U/L Total Protein 7.6 6.4-8.2 GM/DL Albumin 4.2 3.2-4.5 GM/DL Procalcitonin 0.03 <0.10 NG/ML Serum Test, Qualitative NEGATIVE NEGATIVE Monoscreen NEGATIVE NEGATIVE SARS-CoV-2 RNA (RT-PCR) Not Detected Not Detecte My Orders Orders - HUMPHREYS,PETER J SURVEILLANCE MONITOR Covid 19 Inhouse Test (03/03/21 19:17) Cbc With Automated Diff (03/03/21 19:17) Comprehensive Metabolic Panel (03/03/21 19:17) Hcg,Qualitative Serum (03/03/21 19:17) Ed Iv/Invasive Line Start (03/03/21 19:17) Protime With Inr (03/03/21 19:17) Monotest (03/03/21 19:28) Ed Iv/Invasive Line Start (03/03/21 19:28) Ondansetron Injection (Zofran Injectio (03/03/21 19:30) Ketorolac Injection (Toradol Injection) (03/03/21 19:30) Manual Differential (03/03/21 19:22) Ua Culture If Indicated (03/03/21 19:41) Procalcitonin (Pct) (03/03/21 19:41) Lactated Ringers (Lr 1000 Ml Iv Solution (03/03/21 20:15) Drug Screen Stat (Urine) (03/03/21 21:35) Medications Given in ED Current Medications Medications Dose Ordered Sig/Shmuel Route Start Time Stop Time Status Last Admin Dose Admin Ketorolac Tromethamine 15 mg ONCE ONCE IVP 03/03/21 19:30 03/03/21 19:31 DC 03/03/21 19:32 15 MG Ondansetron HCl 8 mg ONCE ONCE IVP 03/03/21 19:30 03/03/21 19:31 DC 03/03/21 19:32 8 MG Vital Signs/I&O 03/03/21 03/03/21 19:18 19:48 Temp 37.2 Pulse 117 Resp 20 B/P (MAP) 130/77 (94) Pulse Ox 97 O2 Delivery Room Air Room Air Capillary Refill : Departure Impression Primary Impression: URI (upper respiratory infection) Disposition: 01 HOME, SELF-CARE Condition: Stable Departure-Patient Inst. Decision time for Depature: 21:36 Referrals: FERCHO COLLINS DO (PCP/Family) Primary Care Physician Patient Instructions: Viral Upper Respiratory Infection, Adult (DC) ALTAF HUMPHREYS SURVEILLANCE MONITOR Mar 03, 2021 19:39
[2021-03-03 19:55] LABS: ALBUMIN 4.2 GM/DL (3.2-4.5); BILIRUBIN,TOTAL 1.2 MG/DL (0.1-1.0); CALCIUM 9.7 MG/DL (8.5-10.1); CREATININE SERUM 0.68 MG/DL (0.60-1.30); POTASSIUM 3.9 MMOL/L (3.6-5.0); TOTAL PROTEIN 7.6 GM/DL (6.4-8.2)
[2021-03-03 19:56] LABS: LYMPHOCYTES % (MANUAL) 23 %; MONOCYTES % (MANUAL) 9 %; NEUTROPHILS % (MANUAL) 68 %; RBC MORPH NORMAL
[2021-03-03] MEDS ORDERED: LACTATED RINGERS 1,000 ML IV SCH (20:15)
[2021-03-03 21:46] VITALS: BP 99/60
== END 2021-03-03 21:49 | disposition home or self-care (01) ==
LOC: EDUNIT# 19:13 → ER 19:16
DX: J06.9 Acute upper respiratory infection, unspecified (principal); E11.9 Type 2 diabetes mellitus without complications; Z20.822 Contact with and (suspected) exposure to COVID-19
CPT/HCPCS: 36415; 80053; 84145; 84703; 85007; 85027; 85610; 86308; 87636

== ENCOUNTER 2021-07-20 09:36 | Emergency (ER) | payer MEDICAID ==
[~2021-07-20] VITALS: Ht 160 cm; Wt 45.4 kg
[2021-07-20] MEDS ORDERED: IBUPROFEN TABLET 200 MG TAB PO STA (09:56)
--- NOTE | 2021-07-20 10:33 | ED Cough/URI ---
General Chief Complaint: Cough/Cold/Flu Symptoms Stated Complaint: FEVER - CHILLS - SORE THROAT Nursing Triage Note: PT AMB TO [facility] 10 WITH COMPLAINT OF COUGH, CHILLS, AND SORE THROAT. STARTED YESTERDAY MORNING. Source: patient Exam Limitations: no limitations History of Present Illness Date Seen by Provider: Jul 20, 2021 Time Seen by Provider: 09:50 Initial Comments Here with sore throat, runny nose, cough, chills and mild ear pain that started yesterday morning and worse today. She is not vaccinated for COVID. She did have Covid early last fall. Denies nausea, vomiting, diarrhea, dysuria or frequency. Last menstrual period 1 week ago. She does have tubal ligation. Timing/Duration: yesterday, getting worse Severity/Quality: mild, dry cough Prior Episodes/Possible Cause: occasional episodes Modifying Factors: Improves With Rest Associated Symptoms: cough, nasal congestion, nasal drainage, sore throat Allergies and Home Medications Allergies Coded Allergies: onion (Verified Allergy, Unknown, 06/14/18) Patient Home Medication List Home Medication List Reviewed: Yes Docusate Sodium (Docusate Sodium) 100 Mg Capsule, 100 MG PO BID PRN for CONSTIPATION-1ST LINE Prescribed by: HETAL CHOWDHURY on 06/13/18 1324 Hydrocodone Bit/Acetaminophen (Lortab 5 Mg Tablet) 1 Tab Tab, 1 TAB PO Q4H PRN for PAIN-MODERATE Prescribed by: HETAL CHOWDHURY on 06/13/18 1324 Hydrocodone/Acetaminophen (Hydrocodone-Acetamin 5-325 mg) 1 Each Tablet, 1 TAB PO Q6H PRN for PAIN-MODERATE (5-7) Prescribed by: ZENOBIA PERES on 05/24/20 1118 Ibuprofen (Ibu) 600 Mg Tablet, 600 MG PO Q6H Prescribed by: HETAL CHOWDHURY on 06/13/18 1324 Ondansetron (Ondansetron Odt) 4 Mg Tab.rapdis, 4 MG PO Q6H PRN for NAUSEA/VOMITING Prescribed by: ZENOBIA PERES on 05/24/20 1117 Review of Systems Review of Systems Constitutional: see HPI, chills; No fever EENTM: nose congestion, throat pain Respiratory: cough, phlegm Cardiovascular: No chest pain, No edema Gastrointestinal: No nausea, No vomiting Genitourinary: no symptoms reported Musculoskeletal: no symptoms reported Past Xbimkii-Iibilb-Enoxip Hx Patient Social History Tobacco Use?: Yes Tobacco type used: Cigarettes Smoking Status: Current Everyday Smoker Use of E-Cig and/or Vaping dev: No Substance use?: No Alcohol Use?: No Pt feels they are or have been: No Immunizations Up To Date Tetanus Booster (TDap): Unknown Seasonal Allergies Seasonal Allergies: No Past Medical History Surgeries: Yes Section Respiratory: No Cardiac: No (heart cath with no intervention) Neurological: Yes Headaches /Migraines Reproductive Disorders: Yes (pcos, miscarriage x 1) 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 Sexually Transmitted Disease: No HIV/AIDS: No Genitourinary: No Kidney Infection Gastrointestinal: No Musculoskeletal: No Endocrine: Yes (early onset dm) Diabetes, Non-Insulin dep Cancer: No Psychosocial: Yes (POST DEPRESSION) Anxiety, PTSD Integumentary: No Blood Disorders: No Adverse Reaction/Blood Tranf: No Family Medical History Reviewed Nursing Family Hx Cardiovascular disease 19 MOTHER Hypertension 19 MOTHER Seizure disorder G8 SISTER No Pertinent Family Hx Physical Exam Vital Signs - First Documented 07/20/21 09:41 Temp 36.7 Pulse 93 Resp 16 B/P (MAP) 100/81 (87) Pulse Ox 97 O2 Delivery Room Air Capillary Refill : Less Than 3 Seconds Height: 5'2.00" Weight: 130lbs. 0.8oz. [id number]; 17.00 BMI Method:Estimated General Appearance: WD/WN, no apparent distress HEENT: PERRL/EOMI, TMs normal, pharyngeal erythema; No tonsillar exudate Neck: supple, lymphadenopathy (R) (Mild), lymphadenopathy (L) (Mild) Respiratory: lungs clear, normal breath sounds Cardiovascular: regular rate, rhythm, no murmur Gastrointestinal: non tender, soft Extremities: non-tender, normal inspection Neurologic/Psychiatric: alert, oriented x 3 Skin: normal color, warm/dry Progress/Results/Core Measures Suspected Sepsis SIRS Temperature: Pulse: 93 Respiratory Rate: 16 Blood Pressure 100 /81 Mean: 87 Results/Orders Lab Results Laboratory Tests Test 07/20/21 09:44 Range/Units Influenza Type A (RT-PCR) Not Detected Not Detecte Influenza Type B (RT-PCR) Not Detected Not Detecte SARS-CoV-2 RNA (RT-PCR) Not Detected Not Detecte Group A Streptococcus Screen NEGATIVE NEGATIVE My Orders Orders - BRYAN VIRK MD Rapid Strep A Screen (07/20/21 09:55) Influenza A And B By Pcr (07/20/21 09:55) Covid 19 Inhouse Test (07/20/21 09:55) Ibuprofen Tablet (Motrin Tablet) (07/20/21 09:56) Vital Signs/I&O 07/20/21 09:41 Temp 36.7 Pulse 93 Resp 16 B/P (MAP) 100/81 (87) Pulse Ox 97 O2 Delivery Room Air Capillary Refill : Less Than 3 Seconds Blood Pressure Mean: 87 Progress Note : Progress Note Seen and evaluated. We will go ahead and check for Covid, flu and strep. Monitor patient. Ibuprofen 600 mg p.o. ordered. Strep and viral screens negative. Discharged home with return precautions. Patient verbalized understanding instructions and agreement with plan. Departure Impression Primary Impression: URI (upper respiratory infection) Qualified Codes: J06.9 - Acute upper respiratory infection, unspecified Disposition: HOME, SELF-CARE Condition: Stable Departure-Patient Inst. Decision time for Depature: 11:21 Referrals: NO,LOCAL PHYSICIAN (PCP/Family) Primary Care Physician Patient Instructions: Viral Upper Respiratory Infection, Adult (DC) Add. Discharge Instructions: All discharge instructions reviewed with patient and/or family. Voiced understanding. You may take Tylenol/acetaminophen 1000 mg every 8 hours as needed for fever or pain. You may take ibuprofen 600 mg every 8 hours as needed for fever or pain. You may use Afrin nasal spray or the generic, 12 hour relief, 2 sprays to each nostril twice daily for 3 days only and then stop. Do not use more than 3 days. Follow-up with your DrKam in a few days for recheck. Drink plenty of fluids. Return for worse pain, fever, vomiting, weakness, breathing problems or other concerns as needed. BRYAN VIRK MD Jul 20, 2021 10:33
[2021-07-20 11:27] VITALS: BP 105/76
== END 2021-07-20 11:27 | disposition home or self-care (01) ==
LOC: EDUNIT# 09:36 → ER 09:37
DX: J06.9 Acute upper respiratory infection, unspecified (principal); F17.210 Nicotine dependence, cigarettes, uncomplicated; Z86.16 Personal history of COVID-19; Z20.822 Contact with and (suspected) exposure to COVID-19
CPT/HCPCS: 87430; 87636; 99283

== ENCOUNTER 2021-08-06 18:06 | Emergency (ER) | payer MEDICAID ==
[~2021-08-06] VITALS: Ht 160 cm; Wt 43.0 kg
[2021-08-06] MEDS ORDERED: ASPIRIN 81 MG CHEW (CHILDREN'S ASA) PO ONE (18:15)
--- NOTE | 2021-08-06 18:19 | ED Chest Pain ---
General Stated Complaint: CHEST PAIN Source: patient History of Present Illness Date Seen by Provider: Aug 06, 2021 Time Seen by Provider: 18:09 Initial Comments PT ARRIVES VIA POV FROM HOME C/O CHEST PAIN SINCE NOON TODAY PAIN BEGAN WHILE SITTING AT TABLE READING. PAIN IS IN MID CHEST AND ENTIRE LEFT CHEST AND AROUND TO HER LEFT UPPER BACK RATES PAIN "/-9" PAIN COMES AND GOES NOTHING WORSENS OR IMPROVES PAIN HAS NOT TAKEN ANYTHING FOR PAIN + SHORTNESS OF BREATH NO NAUSEA/VOMITING NO SWEATS' NO SWELLING IN FEET/ANKLES OR PAIN IN CALVES NO PALPITATIONS NO DIZZINESS OR SYNCOPE NO COUGH, FEVER OR RECENT ILLNESS NO HISTORY OF SIMILAR ONLY PAST MEDICAL PROBLEM IS DEPRESSION--TAKES CITALOPRAM--PRESCRIBED BY HER OB A YEAR AGO AFTER HER LAST CHILD WAS BORN. HAS NOT FOLLOWED UP WITH ANYONE SINCE THEN. DOES NOT HAVE PCP OR GO TO [facility] PT IS NOT DENIES SMOKING, RARE ETOH, RARE THC USE LMP --TODAY, S/P BTL. HAS NOT HAD COVID VACCINE, BUT HAS HAD FLU VACCINE PCP: NONE Allergies and Home Medications Allergies Coded Allergies: onion (Verified Allergy, Unknown, 06/14/18) Patient Home Medication List Home Medication List Reviewed: Yes Docusate Sodium (Docusate Sodium) 100 Mg Capsule, 100 MG PO BID PRN for CONSTIPATION-1ST LINE Prescribed by: HETAL CHOWDHURY on 06/13/18 1324 Hydrocodone Bit/Acetaminophen (Lortab 5 Mg Tablet) 1 Tab Tab, 1 TAB PO Q4H PRN for PAIN-MODERATE Prescribed by: HETAL CHOWDHURY on 06/13/18 1324 Hydrocodone/Acetaminophen (Hydrocodone-Acetamin 5-325 mg) 1 Each Tablet, 1 TAB PO Q6H PRN for PAIN-MODERATE (5-7) Prescribed by: ZENOBIA PERES on 05/24/20 1118 Ibuprofen (Ibu) 600 Mg Tablet, 600 MG PO Q6H Prescribed by: HETAL CHOWDHURY on 06/13/18 1324 Ondansetron (Ondansetron Odt) 4 Mg Tab.rapdis, 4 MG PO Q6H PRN for NAUSEA/VOMITING Prescribed by: ZENOBIA PERES on 05/24/20 1117 Review of Systems Review of Systems Constitutional: no symptoms reported EENTM: No Symptoms Reported Respiratory: See HPI Cardiovascular: See HPI Gastrointestinal: No Symptoms Reported Genitourinary: No Symptoms Reported Musculoskeletal: see HPI Skin: no symptoms reported Psychiatric/Neurological: Anxiety Endocrine: No Symptoms Reported Hematologic/Lymphatic: No Symptoms Reported Past Znwwttj-Qykvxn-Rmnpki Hx Patient Social History Tobacco Use?: No Substance use?: Yes Substance type: Marijuana Substance frequency: Rarely Alcohol Use?: Yes Alcohol Frequency: Rarely Immunizations Up To Date Tetanus Booster (TDap): Unknown Seasonal Allergies Seasonal Allergies: No Past Medical History Surgeries: Yes ( X 3) Section, Tubal Ligation Respiratory: No Cardiac: No (heart cath with no intervention) Neurological: Yes Headaches /Migraines : No Hx : 7 Hx Para: 6 Hx Total # of Abortions (Sp): 1 Reproductive Disorders: Yes (pcos, miscarriage x 1) 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 Disorders: Ovarian Cyst, Polycystic Ovarian Dis Sexually Transmitted Disease: No HIV/AIDS: No Genitourinary: Yes Kidney Infection, Bladder Infection Gastrointestinal: No Musculoskeletal: No Endocrine: Yes (early onset dm) Diabetes, Non-Insulin dep HEENT: No Cancer: No Psychosocial: Yes (POST DEPRESSION) Anxiety, PTSD, Depression Integumentary: No Blood Disorders: No Adverse Reaction/Blood Tranf: No Family Medical History Cardiovascular disease 19 MOTHER Hypertension 19 MOTHER Seizure disorder G8 SISTER No Pertinent Family Hx Physical Exam Vital Signs Vital Signs - First Documented 08/06/21 08/06/21 18:09 20:25 Temp 37.1 Pulse 84 Resp 17 B/P (MAP) 117/72 (87) Pulse Ox 100 O2 Delivery Room Air Capillary Refill : Height, Weight, BMI Height: 5'2.00" Weight: 130lbs. 0.8oz. 58.156410vu; 17.00 BMI Method:Estimated General Appearance: WD/WN, Thin, Other (ANXOUS, HYPERVENTILATING. BAREFOOT, FEET FILTHY. BRINGS IN WITH HER MULTIPLE JOURNALS AND BOOKS AND IS WATCHING VIDEOS ON HER PHONE DURING ENTIRE ER STAY) HEENT: PERRL/EOMI Neck: Normal Inspection Respiratory: Chest Non Tender, Normal Breath Sounds, No Accessory Muscle Use, No Respiratory Distress, Other (HYPERVENTILATING) Cardiovascular: Regular Rate, Rhythm, No Edema, No Gallop, No JVD, No Murmur, Normal Peripheral Pulses Gastrointestinal: Normal Bowel Sounds, No Organomegaly, No Pulsatile Mass, Non Tender, Soft Extremity: Normal Capillary Refill, Normal Inspection, Normal Range of Motion, Non Tender, No Calf Tenderness, No Pedal Edema Neurologic/Psychiatric: Alert, Oriented x3, No Motor/Sensory Deficits, etl bi developer II- XII Norm as Tested, Other (ANXIOUS) Skin: Normal Color, Warm/Dry, Tattoos/Piercings (MULTIPLE TATTOOS) Progress/Results/Core Measures Results/Orders Lab Results Laboratory Tests Test 08/06/21 18:18 08/06/21 19:45 Range/Units White Blood Count 7.6 4.3-11.0 10^3/uL Red Blood Count 4.71 3.80-5.11 10^6/uL Hemoglobin 13.5 11.5-16.0 g/dL Hematocrit 40 35-52 % Mean Corpuscular Volume 86 80-99 fL Mean Corpuscular Hemoglobin 29 25-34 pg Mean Corpuscular Hemoglobin Concent 33 32-36 g/dL Red Cell Distribution Width 13.9 10.0-14.5 % Platelet Count 209 130-400 10^3/uL Mean Platelet Volume 10.8 9.0-12.2 fL Immature Granulocyte % (Auto) 0 % Neutrophils (%) (Auto) 53 42-75 % Lymphocytes (%) (Auto) 38 12-44 % Monocytes (%) (Auto) 8 0-12 % Eosinophils (%) (Auto) 1 0-10 % Basophils (%) (Auto) 0 0-10 % Neutrophils # (Auto) 4.0 1.8-7.8 10^3/uL Lymphocytes # (Auto) 2.8 1.0-4.0 10^3/uL Monocytes # (Auto) 0.6 0.0-1.0 10^3/uL Eosinophils # (Auto) 0.1 0.0-0.3 10^3/uL Basophils # (Auto) 0.0 0.0-0.1 10^3/uL Immature Granulocyte # (Auto) 0.0 0.0-0.1 10^3/uL Erythrocyte Sedimentation Rate 12 0-20 MM/HR Prothrombin Time 13.6 12.2-14.7 SEC INR Comment 1.0 0.8-1.4 Activated Partial Thromboplast Time 31 24-35 SEC D-Dimer 0.34 0.00-0.49 UG/ML Sodium Level 142 135-145 MMOL/L Potassium Level 3.7 3.6-5.0 MMOL/L Chloride Level 108 H 98-107 MMOL/L Carbon Dioxide Level 22 21-32 MMOL/L Anion Gap 12 5-14 MMOL/L Blood Urea Nitrogen 16 7-18 MG/DL Creatinine 0.63 0.60-1.30 MG/DL Estimat Glomerular Filtration Rate 123 BUN/Creatinine Ratio 25 Glucose Level 100 70-105 MG/DL Calcium Level 9.4 8.5-10.1 MG/DL Corrected Calcium 9.4 8.5-10.1 MG/DL Magnesium Level 1.8 1.6-2.4 MG/DL Total Bilirubin 0.5 0.1-1.0 MG/DL Aspartate Amino Transf (AST/SGOT) 28 5-34 U/L Alanine Aminotransferase (ALT/SGPT) 40 0-55 U/L Alkaline Phosphatase 101 40-136 U/L Total Creatine Kinase 59 29-168 U/L Creatine Kinase MB 1.0 <6.6 NG/ML Myoglobin 30.6 10.0-92.0 NG/ML Troponin I < 0.028 <0.028 NG/ML C-Reactive Protein High Sensitivity 0.70 H 0.00-0.50 MG/DL B-Type Natriuretic Peptide 24.7 <100.0 PG/ML Total Protein 7.0 6.4-8.2 GM/DL Albumin 4.0 3.2-4.5 GM/DL Lipase 50 8-78 U/L Free Thyroxine 1.87 H 0.70-1.48 NG/DL TSH [place] Testing 0.00 L 0.00 L 0.35-4.94 UIU/ML Serum Test, Qualitative NEGATIVE NEGATIVE Influenza Type A (RT-PCR) Not Detected Not Detecte Influenza Type B (RT-PCR) Not Detected Not Detecte SARS-CoV-2 RNA (RT-PCR) Not Detected Not Detecte My Orders Orders - CRUZ COHN DO Ed Iv/Invasive Line Start (08/06/21 18:13) Ekg Tracing (08/06/21 18:13) O2 (08/06/21 18:13) Monitor-Rhythm Ecg Trace Only (08/06/21 18:13) Bnp Xena (08/06/21 18:13) Cbc With Automated Diff (08/06/21 18:13) Comprehensive Metabolic Panel (08/06/21 18:13) Creatine Kinase (08/06/21 18:13) Creatine Kinase Mb (08/06/21 18:13) Hs C Reactive Protein (08/06/21 18:13) Fibrin Degradation Products (08/06/21 18:13) Hcg,Qualitative Serum (08/06/21 18:13) Lipase (08/06/21 18:13) Magnesium (08/06/21 18:13) Protime With Inr (08/06/21 18:13) Partial Thromboplastin Time (08/06/21 18:13) Thyroid Analyzer (08/06/21 18:13) Erythrocyte Sedimentation Rate (08/06/21 18:13) Myoglobin Serum (08/06/21 18:13) Troponin I Clinch (08/06/21 18:13) Chest 1 View, Ap/Pa Only (08/06/21 18:13) Ed Iv/Invasive Line Start (08/06/21 18:13) Aspirin Chewable Tablet (Baby Aspirin Ch (08/06/21 18:15) Covid 19 Inhouse Test (08/06/21 18:13) Influenza A And B By Pcr (08/06/21 18:13) Isolation Central Supply Req (08/06/21 18:13) Ketorolac Injection (Toradol Injection) (08/06/21 19:15) Free T4 (Free Thyroxine) (08/06/21 18:18) Thyroid Analyzer (08/06/21 19:24) Medications Given in ED Current Medications Medications Dose Ordered Sig/Shmuel Route Start Time Stop Time Status Last Admin Dose Admin Aspirin 324 mg ONCE ONCE PO 08/06/21 18:15 08/06/21 18:16 DC 08/06/21 18:45 324 MG Ketorolac Tromethamine 30 mg ONCE ONCE IVP 08/06/21 19:15 08/06/21 19:16 DC 08/06/21 19:11 30 MG Vital Signs/I&O 08/06/21 08/06/21 18:09 20:25 Temp 37.1 Pulse 84 73 Resp 17 B/P (MAP) 117/72 (87) 103/61 Pulse Ox 100 99 O2 Delivery Room Air Progress Progress Note : Progress Note O2 SAT 100% ON ROOM AIR. HR, 81, BP 117/72 ON ARRIVAL GIVEN ASPIRIN AND TORADOL FOR PAIN --SYMPTOMS COMPLETELY RESOLVED AT DISMISSAL NO DETERIORATION IN PT'S CONDITION DURING ER STAY. PT WATCHING VIDEOS ON PHONE, PLAYING / TEXTING ON PHONE, READING BOOK AND WRITING IN JOURNALS THOROUGHOUT ENTIRE ER STAY NO COMPLAINTS FOR ENTIRE ER STAY 2019--PT DOES NOT WANT TO WAIT FOR TEST RESULTS, SIGNED OUT AMA Initial ECG Impression Date: Aug 06, 2021 Initial ECG Impression Time: 18:11 Initial ECG Rate: 84 Initial ECG Rhythm: Normal Sinus Initial ECG Impression: Normal Diagnostic Imaging Comments CXR- PER RADIOLOGIST REPORT AT 1903 FINDINGS: The heart size, mediastinal configuration and pulmonary vascularity are within normal limits. The lungs are clear with no consolidating infiltrate. There is no significant effusion or pneumothorax. IMPRESSION: 1. Negative appearing single view chest. Reviewed: Reviewed by Me Departure Impression Primary Impression: Left against medical advice Additional Impressions: Intermittent left-sided chest pain Anxiety Abnormal thyroid function test Disposition: AGAINST MEDICAL ADVICE Condition: Against Medical Advice Departure-Patient Inst. Decision time for Depature: 20:24 Referrals: NO,LOCAL PHYSICIAN (PCP/Family) Primary Care Physician Patient Instructions: Anxiety, Adult ED, Chest Pain, Adult ED Add. Discharge Instructions: HOME, REST CONTINUE YOUR CITALOPRAM DAILY PRESCRIBED FOLLOW UP WITH OF CHOICE THIS WEEK FOR FURTHER CARE--LIST OF LOCAL PROVIDERS SENT HOME WITH YOU Work/School Note: Local Medical Staff Listing CRUZ COHN DO Aug 06, 2021 18:19
[2021-08-06 18:27] LABS: BASOPHILS % (AUTO) 0 % (0-10); EOSINOPHILS # (AUTO) 0.1 10^3/uL (0.0-0.3); EOSINOPHILS % (AUTO) 1 % (0-10); HEMATOCRIT 40 % (35-52); HEMOGLOBIN 13.5 g/dL (11.5-16.0); LYMPHOCYTES # (AUTO) 2.8 10^3/uL (1.0-4.0); LYMPHOCYTES % (AUTO) 38 % (12-44); MEAN CORPUSCULAR HEMOGLOBIN 29 pg (25-34); MEAN CORPUSCULAR HGB CONC 33 g/dL (32-36); MEAN CORPUSCULAR VOLUME 86 fL (80-99); MEAN PLATELET VOLUME 10.8 fL (9.0-12.2); MONOCYTES # (AUTO) 0.6 10^3/uL (0.0-1.0); MONOCYTES % (AUTO) 8 % (0-12); NEUTROPHILS % (AUTO) 53 % (42-75); PLATELET COUNT 209 10^3/uL (130-400); WHITE BLOOD COUNT 7.6 10^3/uL (4.3-11.0)
[2021-08-06 18:41] LABS: CHLORIDE 108 MMOL/L (98-107); FIBRIN DEGRADATION PRODUCTS 0.34 UG/ML (0.00-0.49); POTASSIUM 3.7 MMOL/L (3.6-5.0); PROTHROMBIN TIME PATIENT 13.6 SEC (12.2-14.7); SODIUM 142 MMOL/L (135-145)
[2021-08-06 18:42] LABS: CALCIUM 9.4 MG/DL (8.5-10.1)
[2021-08-06 18:44] LABS: GLUCOSE 100 MG/DL (70-105)
[2021-08-06 18:45] LABS: CARBON DIOXIDE 22 MMOL/L (21-32)
[2021-08-06 18:46] LABS: BILIRUBIN,TOTAL 0.5 MG/DL (0.1-1.0)
[2021-08-06 18:47] LABS: ALKALINE PHOSPHATASE 101 U/L (40-136); CREATININE SERUM 0.63 MG/DL (0.60-1.30); GFR ESTIMATED 123
[2021-08-06 18:48] LABS: BUN/CREATININE RATIO 25
[2021-08-06 18:50] LABS: ALANINE AMINOTRANSFERASE 40 U/L (0-55); MAGNESIUM 1.8 MG/DL (1.6-2.4)
[2021-08-06 18:51] LABS: LIPASE 50 U/L (8-78)
[2021-08-06 18:52] LABS: CREATINE KINASE 59 U/L (29-168)
--- NOTE | 2021-08-06 19:02 | Diagnostic Imaging Report ---
INDICATION: Chest pain. TECHNIQUE: Single view chest 7:03 PM. CORRELATION STUDY: 07/22/2013 FINDINGS: The heart size, mediastinal configuration and pulmonary vascularity are within normal limits. The lungs are clear with no consolidating infiltrate. There is no significant effusion or pneumothorax. IMPRESSION: 1. Negative appearing single view chest. Dictated by: Dictated on workstation # [id number]
[2021-08-06 19:13] LABS: ERYTHROCYTE SEDIMENTATION RATE 12 MM/HR (0-20)
[2021-08-06] MEDS ORDERED: KETOROLAC 30 MG/ML VIAL IVP ONE (19:15)
[2021-08-06 19:48] LABS: FREE T4 (FREE THYROXINE) 1.87 NG/DL (0.70-1.48)
[2021-08-06 20:25] VITALS: BP 103/61
== END 2021-08-06 20:25 | disposition left against medical advice (07) ==
LOC: EDUNIT# 18:06 → ER 18:11
DX: R07.89 Other chest pain (principal); F41.9 Anxiety disorder, unspecified; F32.9 Major depressive disorder, single episode, unspecified; R94.6 Abnormal results of thyroid function studies; Z20.822 Contact with and (suspected) exposure to COVID-19
CPT/HCPCS: 36415; 71045; 80053; 82550; 82553; 83690; 83735; 83874; 83880; 84439; 84443; 84484; 84703; 85025; 85379; 85610; 85652; 85730; 86141; 87636; 93005; 93041

== ENCOUNTER 2021-10-13 05:22 | Emergency (ER) | payer MEDICAID ==
[~2021-10-13] VITALS: Ht 160 cm; Wt 47.2 kg
--- NOTE | 2021-10-13 06:08 | ED EENT ---
History of Present Illness General Chief Complaint: Dental Problems/Pain Stated Complaint: DENTAL PAIN,N/V Nursing Triage Note: Pt arrival to ER with complaint of dental pain. Pain to bottom right tooth. pt states pain off and on x2 months. unable to get into dentist because of being booked out for 2 months. pain at a 9/10. pain worsened this am. Source: patient Exam Limitations: no limitations History of Present Illness Date Seen by Provider: Oct 13, 2021 Time Seen by Provider: 06:03 Initial Comments Patient is a 31-year-old female who presents to the emergency department today with a chief complaint of dental pain right bottom molar. Patient states that she has been steadily getting pain over the course of the last several months but this morning it woke her up at around 2 AM, more severe pain. Eating drinking make it worse. She has been taking Tylenol and ibuprofen. She states she took "2000 mg" of Tylenol at about 230. She states she thinks the pain is subsiding just a little bit. She declines dental block at this time. No fevers or chills. No floor of the mouth swelling or difficulty with speech or swallowing. Tubes are tied she is not . Dental appointment scheduled for the "end of November" through [facility] All other review of systems reviewed and negative except as stated. Timing/Duration: gradual Severity: severe Location: dental Prearrival Treatment: over the counter meds Associated Symptoms: denies symptoms Allergies and Home Medications Allergies Coded Allergies: onion (Verified Allergy, Unknown, 06/14/18) Patient Home Medication List Home Medication List Reviewed: Yes Docusate Sodium (Docusate Sodium) 100 Mg Capsule, 100 MG PO BID PRN for CONSTIPATION-1ST LINE Prescribed by: HETAL CHOWDHURY on 06/13/18 1324 Hydrocodone Bit/Acetaminophen (Lortab 5 Mg Tablet) 1 Tab Tab, 1 TAB PO Q4H PRN for PAIN-MODERATE Prescribed by: HETAL CHOWDHURY on 06/13/18 1324 Hydrocodone/Acetaminophen (Hydrocodone-Acetamin 5-325 mg) 1 Each Tablet, 1 TAB PO Q6H PRN for PAIN-MODERATE (5-7) Prescribed by: ZENOBIA PERES on 05/24/20 1118 Ibuprofen (Ibu) 600 Mg Tablet, 600 MG PO Q6H Prescribed by: HETAL CHOWDHURY on 06/13/18 1324 Ondansetron (Ondansetron Odt) 4 Mg Tab.rapdis, 4 MG PO Q6H PRN for NAUSEA/VOMITING Prescribed by: ZENOBIA PERES on 05/24/20 1117 Review of Systems Review of Systems Constitutional: see HPI Ears: Pain (right) Mouth: other (dental pain) Throat: no symptoms reported Respiratory: no symptoms reported Cardiovascular: no symptoms reported Gastrointestinal: nausea, vomiting : No Skin: no symptoms reported Neurological: No Symptoms Reported All Other Systems Reviewed Negative Unless Noted: Yes Past Sifcasa-Itufzc-Yeqcui Hx Patient Social History Tobacco Use?: Yes Tobacco type used: Cigarettes Smoking Status: Current Everyday Smoker Use of E-Cig and/or Vaping dev: No Substance use?: Yes Substance type: Marijuana Substance frequency: Couple times a week Alcohol Use?: No Pt feels they are or have been: No Immunizations Up To Date Tetanus Booster (TDap): Unknown Influenza Vaccine Up-to-Date: Yes; Up-to-Date COVID19 Vaccine Shop Director: [facility] Seasonal Allergies Seasonal Allergies: No Past Medical History Surgery/Hospitalization HX: DEPRESSION, 3 C-SECTIONS, TUBAL Surgeries: Yes ( X 3) Section, Tubal Ligation Respiratory: No Cardiac: No (heart cath with no intervention) Neurological: Yes Headaches /Migraines Reproductive Disorders: Yes (pcos, miscarriage x 1) 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 Disorders: Ovarian Cyst, Polycystic Ovarian Dis Sexually Transmitted Disease: No HIV/AIDS: No Genitourinary: Yes Kidney Infection, Bladder Infection Gastrointestinal: No Musculoskeletal: No Endocrine: Yes (early onset dm) Diabetes, Non-Insulin dep HEENT: No Cancer: No Psychosocial: Yes (POST DEPRESSION) Anxiety, PTSD, Depression Integumentary: No Blood Disorders: No Adverse Reaction/Blood Tranf: No Family Medical History Cardiovascular disease 19 MOTHER Hypertension 19 MOTHER Seizure disorder G8 SISTER No Pertinent Family Hx Physical Exam Vital Signs Vital Signs - First Documented 10/13/21 05:52 Temp 36.9 Pulse 77 Resp 16 B/P (MAP) 112/67 (82) Pulse Ox 99 O2 Delivery Room Air Height, Weight, BMI Height: 5'2.00" Weight: 130lbs. 0.8oz. 58.327028ay; 18.00 BMI Method:Estimated General Appearance: WD/WN, no apparent distress Eyes: bilateral eye normal inspection, bilateral eye PERRL, bilateral eye EOMI Ears: right ear other (Right TM partially occluded by cerumen, visualized portions of the TM appear normal); bilateral ear auricle normal, bilateral ear canal normal, bilateral ear TM normal Nose: normal inspection Mouth/Throat: other (right bottom molar broken - with what appears to be tea leaves in the crevice. no gingival swelling or tenderness. mild gingivitis) Neck: full range of motion, supple, normal inspection Cardiovascular: regular rate, rhythm Respiratory: no respiratory distress, no accessory muscle use Progress/Results/Core Measures Results/Orders Vital Signs/I&O 10/13/21 05:52 Temp 36.9 Pulse 77 Resp 16 B/P (MAP) 112/67 (82) Pulse Ox 99 O2 Delivery Room Air Blood Pressure Mean: 82 Departure Impression Primary Impression: Pain, dental Additional Impression: Fractured tooth Qualified Codes: S02.5XXA - Fracture of tooth (traumatic), initial encounter for closed fracture Disposition: 01 HOME, SELF-CARE Condition: Stable Departure-Patient Inst. Decision time for Depature: 06:13 Referrals: [facility]/KAILEY HARKINS,LOCAL PHYSICIAN (PCP) Primary Care Physician Patient Instructions: Dental Pain Add. Discharge Instructions: Use a good oral rinse such as Listerine twice daily. Make sure you brush also 2-3 times daily. Alternate 600 mg of ibuprofen with 1 g of Tylenol every 6 hours. Always take ibuprofen with food. If you get a fever, facial swelling, redness with worsening dental pain please come back to the emergency room for reevaluation. Follow-up with [facility]. Take antibiotics as directed for 10 days. Nausea medicine every 8 hours as needed for nausea and vomiting. Scripts Ondansetron (Ondansetron Odt) 4 Mg Tab.rapdis 4 MG PO Q8H PRN for nausea, #15 TAB Prov: FELY OLIVARES MD 10/13/21 Penicillin V Potassium (Penicillin V Potassium) 500 Mg Tablet 500 MG PO Q6H, #40 TAB Prov: FELY OLIVARES MD 10/13/21 Copy Copies To 1: MICK CAMPUZANO KATHRYN M MD Oct 13, 2021 06:08
[2021-10-13] MEDS ORDERED: ONDA4TAB11 PO (06:15)
[2021-10-13] MEDS ORDERED: PENI500T PO (06:15)
[2021-10-13 06:31] VITALS: BP 112/67
== END 2021-10-13 06:31 | disposition home or self-care (01) ==
LOC: ER 05:23
DX: S02.5XXA Fracture of tooth (traumatic), initial encounter for closed fracture (principal); F17.210 Nicotine dependence, cigarettes, uncomplicated; X58.XXXA Exposure to other specified factors, initial encounter
CPT/HCPCS: 99282

== ENCOUNTER 2023-03-07 13:12 | Emergency (ER) | payer MEDICAID, OTHER ==
[~2023-03-07] VITALS: Ht 160 cm; Wt 51.3 kg
[~2023-03-07 13:12] MED LIST changes: +PENI500T PO; -PROG200C14 PO; +PROG200C36 PO
--- NOTE | 2023-03-07 13:42 | ED General ---
General Chief Complaint: COVID19 Suspect/Confirmed Stated Complaint: CHILLS | FEVER | BODY ACHES Source of Information: Patient Exam Limitations: No Limitations History of Present Illness Date Seen by Provider: Mar 07, 2023 Time Seen by Provider: 13:40 Initial Comments Patient is a 32-year-old female who presents to the ED flulike symptoms. Symptoms started 2 days ago. She reports body aches chills weakness fatigue, nasal congestion, and mild cough, sore throat. She denies shortness of breath or chest pain. She reports feeling feverish at home. 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 She is currently on antibiotic for right lower dental pain that she has been complaining of over the past month. Currently taking the antibiotic. She denies of any heart disease, history of asthma. Every day smoker. She denies any current abdominal pain, pain with urination, frequent urination, vaginal discharge, vaginal bleeding. Has been taking anti-inflammatories at home. Allergies and Home Medications Allergies Coded Allergies: onion (Verified Allergy, Unknown, 06/14/18) Patient Home Medication List Home Medication List Reviewed: Yes Docusate Sodium (Docusate Sodium) 100 Mg Capsule, 100 MG PO BID PRN for CONSTIPATION-1ST LINE Prescribed by: HETAL CHOWDHURY on 06/13/18 1324 Hydrocodone Bit/Acetaminophen (Lortab 5 Mg Tablet) 1 Tab Tab, 1 TAB PO Q4H PRN for PAIN-MODERATE Prescribed by: HETAL CHOWDHURY on 06/13/18 1324 Hydrocodone/Acetaminophen (Hydrocodone-Acetamin 5-325 mg) 1 Each Tablet, 1 TAB PO Q6H PRN for PAIN-MODERATE (5-7) Prescribed by: ZENOBIA PERES on 05/24/20 1118 Ibuprofen (Ibu) 600 Mg Tablet, 600 MG PO Q6H Prescribed by: HETAL CHOWDHURY on 06/13/18 1324 Ondansetron (Ondansetron Odt) 4 Mg Tab.rapdis, 4 MG PO Q6H PRN for NAUSEA/VOMITING Prescribed by: ZENOBIA PERES on 05/24/20 1117 Ondansetron (Ondansetron Odt) 4 Mg Tab.rapdis, 4 MG PO Q8H PRN for nausea Prescribed by: FELY OLIVARES on 10/13/21 0615 Penicillin V Potassium (Penicillin V Potassium) 500 Mg Tablet, 500 MG PO Q6H Prescribed by: FELY OLIVARES on 10/13/21 0615 Review of Systems Review of Systems Constitutional: chills, fever, malaise, weakness EENTM: No ear pain, No blurred vision, No vision loss, No mouth pain, No nose pain, No throat pain, No throat swelling Respiratory: No cough, No dyspnea on exertion, No short of breath Cardiovascular: No chest pain Gastrointestinal: No abdominal pain, No diarrhea, No nausea, No vomiting Genitourinary: No decreased output, No discharge, No dysuria Musculoskeletal: No back pain, No joint pain Skin: No change in color, No change in hair/nails All Other Systems Reviewed Negative Unless Noted: Yes Past Xohftsu-Pwshup-Pmvekf Hx Immunizations Up To Date Tetanus Booster (TDap): Unknown Seasonal Allergies Seasonal Allergies: No Past Medical History Surgery/Hospitalization HX: DEPRESSION, 3 C-SECTIONS, TUBAL Surgeries: Yes ( X 3) Section, Tubal Ligation Respiratory: No Cardiac: No (heart cath with no intervention) Neurological: Yes Headaches /Migraines Reproductive Disorders: Yes (pcos, miscarriage x 1) 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 Disorders: Ovarian Cyst, Polycystic Ovarian Dis Sexually Transmitted Disease: No HIV/AIDS: No Genitourinary: Yes Kidney Infection, Bladder Infection Gastrointestinal: No Musculoskeletal: No Endocrine: Yes (early onset dm) Diabetes, Non-Insulin dep HEENT: No Cancer: No Psychosocial: Yes (POST DEPRESSION) Anxiety, PTSD, Depression Integumentary: No Blood Disorders: No Adverse Reaction/Blood Tranf: No Family Medical History Cardiovascular disease 19 MOTHER Hypertension 19 MOTHER Seizure disorder G8 SISTER No Pertinent Family Hx Physical Exam Vital Signs Vital Signs - First Documented 03/07/23 13:27 Temp 37.7 Pulse 117 Resp 22 B/P (MAP) 133/72 (92) Pulse Ox 98 Capillary Refill : Height, Weight, BMI Height: 5'2.00" Weight: 130lbs. 0.8oz. [id number]; 18.00 BMI Method:Estimated General Appearance: No Apparent Distress, WD/WN Eyes: Bilateral Eye Normal Inspection, Bilateral Eye PERRL, Bilateral Eye EOMI HEENT: PERRL/EOMI, TMs Normal, Normal ENT Inspection, Pharynx Normal, Other (Decay noted to right lower molar) Neck: Full Range of Motion, Normal Inspection, Non Tender, Supple Respiratory: Chest Non Tender, Lungs Clear, Normal Breath Sounds, No Accessory Muscle Use, No Respiratory Distress Cardiovascular: Regular Rate, Rhythm, No Edema, No Gallop, No JVD Gastrointestinal: Normal Bowel Sounds, No Organomegaly, No Pulsatile Mass, Non Tender Back: Normal Inspection, No CVA Tenderness Extremity: Normal Capillary Refill, Normal Inspection, Normal Range of Motion Neurologic/Psychiatric: Alert, Oriented x3, No Motor/Sensory Deficits, Normal Mood/Affect, hedis specialist II-XII Norm as Tested Skin: Normal Color, Warm/Dry Progress/Results/Core Measures Suspected Sepsis SIRS Temperature: Pulse: Respiratory Rate: Blood Pressure / Mean: Results/Orders Lab Results Laboratory Tests Test 03/07/23 13:30 Range/Units Influenza Type A (RT-PCR) Not Detected Not Detecte Influenza Type B (RT-PCR) Not Detected Not Detecte SARS-CoV-2 RNA (RT-PCR) Not Detected Not Detecte My Orders Orders - CHANTEL JOHNSON Covid 19 Inhouse Test (03/07/23 13:13) Influenza A And B By Pcr (03/07/23 13:13) Vital Signs/I&O 03/07/23 03/07/23 13:27 14:10 Temp 37.7 Pulse 117 119 Resp 22 B/P (MAP) 133/72 (92) 125/76 Pulse Ox 98 99 Capillary Refill : Departure Communication (PCP) Differential diagnosis, viral syndrome, dental infection, pneumonia, strep pharyngitis. On exam patient in no acute distress. She is slightly tachycardic 117 with a low-grade temperature 99.8. She refused Tylenol or ibuprofen. Patient with flulike symptoms. She is currently on penicillin VK for dental infection diagnosed 1 month ago. She has not follow-up with a dentist. She does have right lower dental pain but no obvious facial swelling or redness. Denies any chest pain short of breath, abdominal pain, vomiting or diarrhea. Lung sounds clear bilateral. She refused any lab work or IV fluids as I recommended that she was tachycardic. 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 She reports exposure. She still remained tachycardic. She did not want to proceed with any fluids. She is requesting a work note which was given. I suspect that this is likely viral such as COVID and flu. She Has no specific urinary symptoms. Her oropharynx did not show any exudate uvula deviation, stridor. Tolerating secretions without any pain or discomfort while swallowing. Not concern for strep pharyngitis or tonsillar abscess, Or retropharyngeal abscess. At this time continue with hydration. Alternate Tylenol and ibuprofen. If any worsening pain, shortness of breath return back to ED. Follow-up your PCP in 2 to 3 days for reevaluation. Discussed with patient that this still could be COVID or flu recommend reswab in 2 to 3 days. Suggest a urinalysis as a potential source but she would rather wait. Impression Primary Impression: Viral syndrome Disposition: HOME, SELF-CARE Condition: Stable Departure-Patient Inst. Decision time for Depature: 14:07 Referrals: [facility] – [place],LOCAL PHYSICIAN (PCP) Primary Care Physician Patient Instructions: Flu, Adult ED Add. Discharge Instructions: Recommend staying hydrated, drink plenty of fluids. If any worsening symptoms such as shortness of breath or chest pain return back to ED. All discharge instructions reviewed with patient and/or family. Voiced understanding. Work/School Note: Work Release Form Date Seen in the Emergency Department: Mar 07, 2023 Return to Work: Mar 11, 2023 CHANTEL JOHNSON Mar 07, 2023 13:42
[2023-03-07 14:10] VITALS: BP 125/76
== END 2023-03-07 14:13 | disposition home or self-care (01) ==
LOC: EDUNIT# 13:12 → ER 13:14
DX: B34.9 Viral infection, unspecified (principal); R05.9 Cough, unspecified; R53.83 Other fatigue; R09.81 Nasal congestion
CPT/HCPCS: 87636; 99283